=== PATIENT | male | born 1965 | race Caucasian/White ===

== ENCOUNTER 2023-09-27 09:00 | Outpatient (CLI) | payer BC, SELFPAY | END 2023-09-27 09:01 | disposition home or self-care (01) | PROVIDERS: PCP Physician Assistant Medical; Visit Provider Family Medicine | DX: Z00.00 Encounter for general adult medical examination without abnormal findings (principal); N28.9 Disorder of kidney and ureter, unspecified; F41.1 Generalized anxiety disorder; Z12.5 Encounter for screening for malignant neoplasm of prostate; Z13.6 Encounter for screening for cardiovascular disorders; Z11.59 Encounter for screening for other viral diseases | CPT/HCPCS: 80053; 80061; 80175; 84153; 86803 ==

== ENCOUNTER 2023-11-19 10:15 | Outpatient (RCR) | payer BC, SELFPAY | END 2024-03-18 23:59 | disposition home or self-care (01) | PROVIDERS: PCP Physician Assistant Medical; Visit Provider Family Medicine | DX: S76.311A Strain of muscle, fascia and tendon of the posterior muscle group at thigh level, right thigh, initial encounter (principal); M51.36 Other intervertebral disc degeneration, lumbar region; M17.11 Unilateral primary osteoarthritis, right knee; R26.9 Unspecified abnormalities of gait and mobility; R26.81 Unsteadiness on feet; R29.898 Other symptoms and signs involving the musculoskeletal system; Z51.89 Encounter for other specified aftercare | CPT/HCPCS: 97110; 97162 ==

== ENCOUNTER 2024-08-31 10:29 | Outpatient (CLI) | payer BC, SELFPAY | END 2024-08-31 10:30 | disposition home or self-care (01) | LOC: NFLDREF 09-02 12:33 | PROVIDERS: PCP Physician Assistant Medical; Referring Provider Physician Assistant Medical; Visit Provider Family Medicine | DX: R73.03 Prediabetes; Z13.220 Encounter for screening for lipoid disorders; Z12.5 Encounter for screening for malignant neoplasm of prostate; Z13.29 Encounter for screening for other suspected endocrine disorder | CPT/HCPCS: 80048; 80061; 84443; G0103 ==

== ENCOUNTER 2024-11-16 16:16 | Emergency (ER) | payer BC, SELFPAY ==
[2024-11-16 16:21] VITALS: BP 130/88; PULSE 88; RESP 18; TEMP 36.2; O2SAT 97; BMI 27.2
--- NOTE | 2024-11-16 16:59 | ED.GENADULT ---
HPI - General Adult General Date Seen: 11/16/24 Chief complaint: Unspecified Complaint, Adult Stated complaint: Xanax reaction:shortness of breath, blurred vision Time Seen by Provider: 11/16/24 16:47 History of Present Illness HPI narrative: 59 yo M history of anxiety, difficulty sleeping, depression, osteoarthritis, lumbar degenerative disc disease, ADD, presenting to the ER, presenting to the ER today with concern for blurry vision, lightheaded, tightness in his chest. He reports that he has a history of anxiety and depression and is on scheduled meds for this and also has a p.r.n. prescription for Xanax. He took a Xanax about an hour prior to presentation. He has a long history of depression and anxiety. He has also been sober from alcohol for 12 and half years. He has been on depression meds for some years, at least 8 years since his divorce. sertraline. He is also on long-term lamotrigine to help manage his anxiety. He also has been on anxiety meds. In the past he was on propranolol for anxiety but noted to much side effects especially drowsiness and dizziness from propranolol. So about 5 weeks or so ago, his new primary care provider, Dr. Montes through the [facility] stop his propranolol and switch x2 Xanax instead. He has taken Xanax twice before today. Today is been a bad day. he was feeling very anxious today. He took his an axis afternoon after that started to feel worse. He felt tightness in his chest. He felt dizzy. He felt lightheaded. He had blurry vision. He felt unsteady on his feet. He is concerned that he may be on the wrong medicine for his anxiety. He is also worried about the addictive potential for Xanax. He is also worried that there could be something else besides anxiety going on making his chest Feel tight. He has no other episodes of chest pain or shortness of breath lately. No recent travel. No leg swelling. No fever. No cough. No alcohol in over 12 years. No other drugs. Related Data Previous Rx's ?Medication ?Instructions ?Recorded lamotrigine 200 mg tablet 400 mg (2 x 200 mg) PO QDAY #180 08/31/24 tabs sertraline 100 mg tablet 200 mg (2 x 100 mg) PO QDAY #180 08/31/24 tabs trazodone 50 mg tablet 50 mg PO QPM #90 tabs 08/31/24 alprazolam 0.25 mg tablet (Xanax) 0.25 mg PO BID PRN anxiety #30 tabs 09/28/24 atomoxetine 60 mg capsule 60 mg PO QAM #30 caps 09/28/24 (Strattera) hydroxyzine HCl 25 mg tablet 25 mg PO TID PRN #14 tabs 11/16/24 Allergies Allergy/AdvReac Type Severity Reaction Status Date / Time No Known Allergies Allergy Verified 11/16/24 16:26 [facility] Medical History (Updated 11/16/24 @ 19:41 by Justin Chatman MD) ADD (attention deficit disorder) ?F98.8 - Other specified behavioral and emotional disorders with onset usually occurring in childhood and adolescence (ICD-10) Prediabetes ?R73.03 - Prediabetes (ICD-10) Numerous moles ?D22.9 - Melanocytic nevi, unspecified (ICD-10) Opioid withdrawal ?F11.93 - Opioid use, unspecified with withdrawal (ICD-10) High risk medication use ?Z79.899 - Other detention (current) drug therapy (ICD-10) Well adult health check ?Z00.00 - Encounter for general adult medical examination without abnormal findings (ICD-10) Flank pain ?R10.9 - Unspecified abdominal pain (ICD-10) Closed head injury ?S09.90XA - Unspecified injury of head, initial encounter (ICD-10) Back problem ?M53.9 - Dorsopathy, unspecified (ICD-10) Arthritis ?M19.90 - Unspecified osteoarthritis, unspecified site (ICD-10) Encounter for pre-operative examination ?Z01.818 - Encounter for other preprocedural examination (ICD-10) Surgical History (Updated 08/22/23 @ 07:39 by Apoorva Roman) Fracture of tibia ?S82.209A - Unspecified fracture of shaft of unspecified tibia, initial encounter for closed fracture (ICD-10) S/P arthroscopic partial medial meniscectomy (01/31/22) ?Z98.890 - Other specified postprocedural states (ICD-10) Family History (Updated 08/21/23 @ 13:58 by Latricia Tipton [facility] Mother Vascular disease Father Vascular disease Family/Other Depression Anxiety Social History (Updated 06/27/22 @ 15:40 by Mitch Kaur) Narrative: Non-smoker Smoking Status: Never smoker Exam Narrative: Exam Narrative: Constitutional: Appears well-developed and well-nourished. Alert. Conversant. Non toxic. HENT: Head: Atraumatic. Nose: Nose normal. Mouth/Throat: Oral mucosa is clear and moist. no trismus. Pharynx normal. Tonsils symmetric. No tonsillar enlargement, erythema, or exudate. Eyes: Conjunctivae normal. EOM normal. Pupils equal, round, and reactive to light. No scleral icterus. Neck: Normal range of motion. Neck supple. No tracheal deviation present. No JVD Cardiovascular: Normal rate, regular rhythm. No gallop. No friction rub. No murmur heard. Symmetric radial artery pulses Pulmonary/Chest: Effort normal. No stridor. No respiratory distress. No wheezes. No rales. No rhonchi . No tenderness. Abdominal: Soft. Bowel sounds normal. No distension. No mass. No tenderness. No rebound. No guarding. Musculoskeletal: RUE: Normal range of motion. No tenderness. No deformity LUE: Normal range of motion. No tenderness. No deformity RLE: Normal range of motion. No edema. No tenderness. No deformity LLE: Normal range of motion. No edema. No tenderness. No deformity Neurological: Alert and oriented to person, place, and time. Normal strength. CN II-VII intact. No sensory deficit. GCS eye subscore is 4. GCS verbal subscore is 5. GCS motor subscore is 6. Normal coordination Skin: Skin is warm and dry. No rash noted. No pallor. Normal capillary refill. Psychiatric: polite. Anxious. Jumping rapidly from topic to topic but is easily redirectable. Ultimately able to get a fairly detailed story about his meds and symptoms from him. He endorses lot of anxiety in general, recent stressors lately. He is also anxious about his new anxiety medicines. See HPI. Const: Vital Signs, click to edit/add: Vital Signs - 24 hr 11/16/24 16:21 11/16/24 17:50 11/16/24 18:42 Temperature 97.2 F L Pulse Rate [Right Pulse Oximeter] 88 71 Respiratory Rate 18 18 Respiratory Rate [ Upper Chest] 18 Blood Pressure [Le ft Upper Arm] 130/88 136/81 Pulse Oximetry 97 97 Oxygen Delivery Me thod Room Air Room Air Course Vital Signs Vital signs: Initial Vital Signs Temperature 97.2 F L 11/16/24 16:21 Temperature Source Temporal Artery Scan 11/16/24 16:21 Pulse Rate 88 11/16/24 16:21 Pulse Rhythm Regular 11/16/24 16:21 Respiratory Rate 18 11/16/24 16:21 Blood Pressure 130/88 11/16/24 16:21 Blood Pressure Mean 102 11/16/24 16:21 Blood Pressure Position Sitting 11/16/24 16:21 Pulse Oximetry 97 11/16/24 16:21 Oxygen Delivery Method Room Air 11/16/24 16:21 Vital Signs Temperature 97.2 F L 11/16/24 16:21 Pulse Rate 88 11/16/24 16:21 Respiratory Rate 18 11/16/24 16:21 Blood Pressure 130/88 11/16/24 16:21 Pulse Oximetry 97 11/16/24 16:21 Oxygen Delivery Method Room Air 11/16/24 16:21 Temperature 97.2 F L 11/16/24 16:21 Pulse Rate 71 11/16/24 18:42 Respiratory Rate 18 11/16/24 18:42 Blood Pressure 136/81 11/16/24 18:42 Pulse Oximetry 97 11/16/24 18:42 Oxygen Delivery Method Room Air 11/16/24 18:42 Medications Administered Medications: Discontinued Medications Generic Name Dose Route Start Last Admin Trade Name Memoq PRN Reason Stop Dose Admin Aspirin 162 mg 11/16/24 17:29 11/16/24 17:42 Aspirin 81 Mg Tab.Chew PO 11/16/24 17:30 162 mg ONCE ONE Administration Hydroxyzine Pamoate 25 mg 11/16/24 17:30 11/16/24 17:42 Hydroxyzine Pamoate 25 Mg Capsule PO 11/16/24 17:31 25 mg ONCE ONE Administration Medical Decision Making [facility] Narrative Medical decision making narrative: This patient presents to the ER today for evaluation of Anxiety and feeling poorly all day long because of anxiety,. He took a Xanax this evening to help treat his anxiety but after that started to feel worse, dizziness, unsteadiness, bilateral blurry vision, and subsequently developed mild chest tightness. In terms of his chest symptoms,. Differential was broad. No evidence of palpitations, syncope or other cardiac dysrhythmia. based on workup here in the ER so far. We considered possible ACS, however workup with EKG and troponin is negative. HEART score is 3. Given time since onset of symptoms, I do not think the patient needs to be admitted for further sets of enzymes. EKG shows no evidence for pericarditis. Clinical presentation not suggestive of myocarditis. Chest x-ray shows no evidence for pneumonia, pneumothorax, pulmonary edema, pleural effusion, rib fracture, cardiomegaly. Mediastinum is normal on the x-ray. The patient has no ripping or tearing pain through to the back and has symmetric pulses on exam, no other acute neuro findings so I doubt aortic dissection. Risk of radiation and contrast exposure would outweigh the benefit of CT angiogram. We considered PE for this patient. He is overall very low risk. At this point the risk of radiation and contrast exposure from CT PA would outweigh the benefit. No wheezing or bronchospasm to suggest COPD/asthma. No signs of chest wall cellulitis, shingles, injury. There is a strong component of anxiety underlying his symptoms and I suspect based on his workup so far that is normal that anxiety was driving his chest tightness. He was treated with hydroxyzine here in the ER and is now feeling somewhat better. Much less anxious. Chest tightness is resolved. He does note that he has had increasing anxiety lately. His primary care provider started him on Xanax a few weeks ago and he has been very nervous about that. He has a history of alcohol addiction ( And also had been given prescriptions for opiate pain killers several years ago after orthopedic injury and started developed symptoms of tolerance and withdrawal ) and does not want to create a new addiction to benzos. his anxiety actually got worse this evening after taking Xanax and I suspect that may have been what drove his chest tightness. Anxiety was treated with hydroxyzine here. At this point he is calm, conversant, lucid, cooperative. He is not posing a risk to himself or others. Does not require inpatient hospitalization. In discussion with the patient and his family, we decided to have him stop the Xanax, at least temporarily. Will start him on hydroxyzine that he can use on a p.r.n. basis instead. He will continue on his other anxiety meds for now. He would like to get back cut with a psychiatrist for med management. In the past he had had psychiatry managing his meds and felt more confident at that time. After His psychiatrist retired, there was such a long wait to get into a new psychiatrist, he never made the appointment. I will set him up with a referral to than what is, psychiatric nurse practitioner. this appointment is scheduled in 3 days on 11/19 at 10:00 a.m. in the morning. With reasonable clinical confidence, I think the patient is safe for outpatient follow up. Discussed return precautions. Questions answered. Patient voices comfort with the plan. Lab Data Labs: Lab Results 11/16/24 Range/Units 17:39 WBC 8.19 (4.50-11.00) K/uL RBC 5.57 (4.30-5.90) m/uL Hgb 16.4 (13.5-17.5) gm/dL Hct 49.1 (37.0-53.0) % MCV 88 (80-100) fL MCH 29 (26-34) pg MCHC 33 (32-36) gm/dL RDW Coeff of Raphael 12.4 (11.5-15.5) % Plt Count 213 (140-440) K/uL Neut % (Auto) 85.7 H (42.0-72.0) % Lymph % (Auto) 4.8 L (20-44) % [place] % (Auto) 7.0 (0.0-11.0) % Eos % (Auto) 2.3 (0.0-7.0) % Baso % (Auto) 0.1 (0.0-3.0) % Neut # (Auto) 7.00 (1.7-7.0) K/uL Lymph # (Auto) 0.40 L (0.90-2.90) K/uL [place] # (Auto) 0.60 (0.00-0.90) K/UL Eos # (Auto) 0.19 (0.00-0.50) K/uL Baso # (Auto) 0.01 (0.00-0.30) K/uL Abs Immat Gran (auto) 0.01 (0.00-0.30) K/uL Imm/Tot Granulo (auto) 0.1 % Sodium 141 (135-149) mmol/L Potassium 4.0 (3.6-5.1) mmol/L Chloride 103 (96-114) mmol/L Carbon Dioxide 30 (20-32) mmol/L Anion Gap 8 (7-15) mEq/L BUN 19 (7-30) mg/dL Creatinine 1.0 (0.5-1.5) mg/dL Estimated Creat Clear 84.71 Estimated GFR 87 ml/min Glucose 104 (60-115) mg/dL Calcium 9.6 (8.4-10.6) mg/dL POC Troponin I 0.00 L (0.01-0.04) ng/ml ECG Data Attestation: I personally reviewed and interpreted this ECG as follows: Interpretation: Normal sinus rhythm Rate: He for [place]: 176 QRS axis: left axis deviation. Left anterior fascicular block ST segment/T wave: no ST segment elevation or depression. QTc: 441 Discharge Plan Discharge Clinical Impression: Anxiety, Chest pain Patient Disposition: Home, Self-Care Condition: Stable Instructions: Chest Pain (ED), Panic Disorder (ED) Additional Instructions: as we discussed, please come back to the ER right away if you have more episodes of chest pain or chest tightness, episodes of dizziness or trouble breathing, or any concerns. To help manage her anxiety, continue on your regular medications (sertraline, lamotrigine). Stop taking Xanax. I will give you a prescription for hydroxyzine that he can use only if needed for the next couple of days. You have an appointment to see a psychiatric nurse practitioner, Guy Blandon, on 11/19/2024 at 10:00 a.m . Please refer to the attached sheet for details and location of that appointment please follow-up with your regular doctor in the [facility] within 1-2 weeks. Remember, come back to the ER any time if you are having more problems or any concerning symptoms. Prescriptions: New hydroxyzine HCl 25 mg tablet 25 mg PO TID PRNQty: 14 0RF No Action sertraline 100 mg tablet 200 mg PO QDAY Qty: 180 3RF trazodone 50 mg tablet 50 mg PO QPM Qty: 90 3RF lamotrigine 200 mg tablet 400 mg PO QDAY Qty: 180 3RF atomoxetine [Strattera] 60 mg capsule 60 mg PO QAM Qty: 30 1RF alprazolam [Xanax] 0.25 mg tablet 0.25 mg PO BID PRN (Reason: anxiety) Qty: 30 1RF Follow Up/Referrals: Piedad Mason PA-C [Physician Social Sciences Instructor] - Stand Alone Forms: [employer] Info Instructions
[2024-11-16] MEDS: hydrOXYzine pamoate 25 MG CAPSULE PO (17:42)
[2024-11-16] MEDS: ASPIRIN 81 MG TAB.CHEW 162 MG PO (17:42)
[2024-11-16 17:48] LABS: Basophils Absolute Auto 0.01 K/uL (0.00-0.30); Basophils Percent Auto 0.1 % (0.0-3.0); Eosinophils Absolute Auto 0.19 K/uL (0.00-0.50); Eosinophils Percent Auto 2.3 % (0.0-7.0); Hematocrit 49.1 % (37.0-53.0); Hemoglobin* 16.4 gm/dL (13.5-17.5); Immature Granulocytes Abs Auto 0.01 K/uL (0.00-0.30); Immature Granulocytes Pct Auto 0.1 %; Lymphocytes Percent Auto 4.8 % (20-44); Mean Corpuscular HGB Conc 33 gm/dL (32-36); Mean Corpuscular Hemoglobin 29 pg (26-34); Mean Corpuscular Volume 88 fL (80-100); Neutrophils Percent Auto 85.7 % (42.0-72.0); Platelet Count* 213 K/uL (140-440); RDW Coefficient of Variation % 12.4 % (11.5-15.5); Red Blood Count 5.57 m/uL (4.30-5.90); White Blood Count* 8.19 K/uL (4.50-11.00)
[2024-11-16 17:50] VITALS: RESP 18
[2024-11-16 18:12] LABS: Slide Review Reflex No
[2024-11-16 18:23] LABS: Chloride* 103 mmol/L (96-114); Sodium* 141 mmol/L (135-149)
[2024-11-16 18:26] LABS: Anion Gap 8 mEq/L (7-15); Blood Urea Nitrogen* 19 mg/dL (7-30); Carbon Dioxide* 30 mmol/L (20-32); Est. Creatinine Clearance* 84.71; Estimated Glomerular Filt Rate 87 ml/min
[2024-11-16 18:27] LABS: Calcium* 9.6 mg/dL (8.4-10.6); Glucose* 104 mg/dL (60-115)
[2024-11-16 18:42] VITALS: BP 136/81; PULSE 71; RESP 18; O2SAT 97
== END 2024-11-16 19:51 | disposition home or self-care (01) ==
PROVIDERS: Emergency Provider Emergency Medicine; PCP Family Medicine
DX: F41.9 Anxiety disorder, unspecified (principal); R07.9 Chest pain, unspecified
CPT/HCPCS: 36415; 80048; 84484; 85025; 93005; 99283; 99284; A9270

== ENCOUNTER 2024-12-01 16:54 | Inpatient (IN) | payer BC, SELFPAY ==
--- OUTSIDE RECORDS SUMMARY | 2024-12-01 16:56 | XMS_ITS | Clinical Summary ---
Author Organization [facility] Address [place], [place] [address] Care Team Providers Care Dog Pound Attendant Name Role Phone Pcp, No Primary Care Provider Unavailabl e Allergies No known active allergies Medications sertraline (ZOLOFT) 100 mg tabletIndicatio ns:Adjustment disorder with mixed anxiety and depressed mood Take 1.5 tablets by mouth once daily. 135 tablet 3 06/17/2018 Active lamoTRIgine (LAMICTAL) 100 mg tabletIndicatio ns:Generalized anxiety disorder Take 1 tablet by mouth once daily. 30 tablet 2 06/17/2018 Active hydrOXYzine HCl (ATARAX) 25 mg tabletIndicatio ns:Generalized anxiety disorder Take 1 tablet by mouth every 6 hours if needed for Anxiety. 60 tablet 06/17/2018 Active traZODone (DESYREL) 50 mg tabletIndicatio ns:Psychophysio logic insomnia TAKE 1 TO 2 TABLETS BY MOUTH AT BEDTIME 60 tablet 12/14/2019 Active Active Problems Problem Noted Date Diagnosed Date Routine adult health maintenance 10/03/2015 Overview (10/03/2015): Colonoscopy 10/2015 normal repeat in 10 years Sleep concern 07/18/2015 Other and unspecified alcohol dependence, in rem ission 10/03/2012 Adjustment disorder with mixed anxiety and depre ssed mood 07/02/2007 Immunizations Name Administration Dates Next Due Influenza Virus, Unspecified 10/12/2010, 12/16/2008,09/01/2007,10/25/2006, 10/09/2005,11/27/2004 Influenza, IIV3 (Age >=3 years) 11/13/2014 Influenza, IIV4 (Age 6-35 Mos) 09/29/2013 Td (Age >=7 Years) 05/29/2004 Tdap 07/18/2015,06/16/2012 Social History Tobacco Use Types Packs/Day Years Used Date Smoking Tobacco: Never Smokeless Tobacco: Never Tobacco Cessation:Counseling Given: Yes Alcohol Use Standard Drinks/Week Comments No 0 (1 standard drink = 0.6 oz pure alcohol) In recovery quit 5 yrs ago 07/2015 PHQ-2 Answer Date Recorded PHQ-2 Score 0 01/31/2019 Sex and Gender Information Value Date Recorded Sex Assigned at Not on file Legal Sex Male 5:27 AM A [employer] Gender Identity Not on file Sexual Orientation Not on file Obstetrics History Last Filed Vital Signs Vital Sign Reading Time Taken Comments Blood Pressure 105/66 06/17/2018 10:36 AM CDT Pulse 64 06/17/2018 10:36 AM CDT Temperature 35.8 C (96.5 F) 06/17/2018 10:36 AM CDT Respiratory Rate - - Oxygen Saturation 98% 06/17/2018 10:36 AM CDT Inhaled Oxygen Concentration - - Weight 97.1 kg (214 lb) 06/17/2018 10:36 AM CDT Height 180.3 cm (5' 11) 06/17/2018 10:36 AM CDT Body Mass Index 29.85 06/17/2018 10:36 AM CDT Plan of Treatment Health Maintenance Due Date Last Done Comments HIV for age 15-65 02/04/1980 Hepatitis C screening for age 18-79 1983 Zoster (shingles) series for age 50+ (1 of 2) 2015 BMI (ht and wt on same day) for age 18+ 06/17/2019 06/17/2018, 08/14/2017, 05/27/2017, Additional history exists Depression screening for age 12+ 06/17/2019 06/17/2018, 05/27/2017, 11/20/2016, Additional history exists Lipids for age 45-75 07/19/2020 07/19/2015 COVID-19 vaccine series (2023- season) 2024 Influenza for age 50-64 08/02/2024 11/13/20 14, 10/12/2010, 12/16/2008, Additional history exists Tetanus booster 07/18/2025 07/18/2015, 06/01, 05/29/2004 Colonoscopy through age 75 10/03/2025 10/03/2015, Tdap Completed 07/18/2015, 06/16/2012 Pneumococcal series for age 6-49 Aged Out No longer eligible based on patient's age to complete this topic Procedures Procedure Name Priority Date/Time Associated Diagnosis Comments LIPID PANEL W REFLEX MEASURED LDL Routine 07/19/2015 9:09 AM CDT Screening for lipid disorders from Last 3 Months or Most Recently Relevant to Health Maintenance Results * (ABNORMAL) LIPID PANEL W REFLEX MEASURED LDL (07/19/2015 9:09 AM CDT) CHOLESTEROL,TOTAL 198 100 - 199 mg/dL 07/19/2015 9:34 AM CDT [facility] TRIGLYCERIDES 124 <150 mg/dL 07/19/2015 9:34 AM CDT [facility] HDL CHOLESTEROL 45 >40 mg/dL 07/19/2015 9:34 AM CDT [facility] NON-HDL CHOLESTEROL 153(H) <145 mg/dl 07/19/2015 9:34 AM CDT [facility] CHOL/HDL RATIO 4.40 <4.50 07/19/2015 9:34 AM CDT [facility] LDL CHOLESTEROL 128 <=130 mg/dL 07/19/2015 9:34 AM CDT [facility] PATIENT STATUS FASTING 07/19/2015 9:34 AM CDT [facility] Blood specimen (specimen) BLOOD SPECIMEN / Unknown Venipuncture / Unknown 07/19/2015 9:09 AM CDT 07/19/2015 9:09 AM CDT us Indu Mondragon MD CHEMISTRY Fabi rayo Result [facility] [address] [place] [address], from Last 3 Months or Most Recently Relevant to Health Maintenance Insurance [id number] Care Teams Dog Pound Attendant Relationship Specialty Start Date End Date Pcp, No . PCP - General 01/23/23
[2024-12-01 17:37] VITALS: BP 143/70; PULSE 73; RESP 18; TEMP 37.4; O2SAT 96; BMI 27.2
--- NOTE | 2024-12-01 18:26 | ED_ITS ---
HPI - Abdominal Pain General Time Seen by Provider: 18:26 Date Seen: 12/01/24 Chief Complaint: Abdominal Pain Stated Complaint: abdominal pain (R) Time Seen by Provider: 12/01/24 18:25 Source: patient Mode of arrival: ambulatory Limitations: no limitations History of Present Illness HPI narrative: 59-year-old male with history of anxiety who presents today with abdominal pain. Patient reports 4-5 days of right lower quadrant abdominal pain. Decreased stool output. No urinary symptoms. Nausea and did have some vomiting. Pain is worse with movement, worse with eating. No prior abdominal surgeries. Has taken ibuprofen for this. Related Data Previous Rx's ?Medication ?Instructions ?Recorded lamotrigine 200 mg tablet 400 mg (2 x 200 mg) PO QDAY #180 08/31/24 tabs sertraline 100 mg tablet 200 mg (2 x 100 mg) PO QDAY #180 08/31/24 tabs trazodone 50 mg tablet 50 mg PO QPM #90 tabs 08/31/24 alprazolam 0.25 mg tablet (Xanax) 0.25 mg PO BID PRN anxiety #30 tabs 09/28/24 hydroxyzine HCl 25 mg tablet 25 mg PO TID PRN #14 tabs 11/16/24 Allergies Allergy/AdvReac Type Severity Reaction Status Date / Time No Known Allergies Allergy Verified 12/01/24 19:20 [facility] Medical History (Updated 12/01/24 @ 20:49 by Linden Haas MD) ADD (attention deficit disorder) ?F98.8 - Other specified behavioral and emotional disorders with onset usually occurring in childhood and adolescence (ICD-10) Prediabetes ?R73.03 - Prediabetes (ICD-10) Numerous moles ?D22.9 - Melanocytic nevi, unspecified (ICD-10) Opioid withdrawal ?F11.93 - Opioid use, unspecified with withdrawal (ICD-10) High risk medication use ?Z79.899 - Other long-term (current) drug therapy (ICD-10) Well adult health check ?Z00.00 - Encounter for general adult medical examination without abnormal findings (ICD-10) Flank pain ?R10.9 - Unspecified abdominal pain (ICD-10) Closed head injury ?S09.90XA - Unspecified injury of head, initial encounter (ICD-10) Back problem ?M53.9 - Dorsopathy, unspecified (ICD-10) Arthritis ?M19.90 - Unspecified osteoarthritis, unspecified site (ICD-10) Encounter for pre-operative examination ?Z01.818 - Encounter for other preprocedural examination (ICD-10) Surgical History (Updated 08/22/23 @ 07:39 by Apoorva Roman) Fracture of tibia ?S82.209A - Unspecified fracture of shaft of unspecified tibia, initial encounter for closed fracture (ICD-10) S/P arthroscopic partial medial meniscectomy (01/31/22) ?Z98.890 - Other specified postprocedural states (ICD-10) Family History (Updated 08/21/23 @ 13:58 by Latricia Valdez ~ [facility]) Mother Vascular disease Father Vascular disease Family/Other Depression Anxiety Social History (Updated 06/27/22 @ 15:40 by Mitch Kaur) Narrative: Non-smoker Smoking Status: Never smoker Exam Narrative: Exam Narrative: General: Well-developed and well-nourished, no acute distress Head: Atraumatic and normocephalic Eyes: Pupils are equal reactive, extraocular motions intact, conjunctiva clear ENT: External nose and ears are normal, posterior pharynx without erythema or exudate Neck: No midline cervical tenderness, full spontaneous range of motion the neck, trachea midline, no adenopathy Heart: Regular rate and rhythm no murmurs or thrills Lungs: Clear to auscultation bilaterally without wheezes or crackles Abdomen: Soft, marked right lower quadrant tenderness, nondistended with active bowel sounds Musculoskeletal: No tenderness, deformity, or edema Neurologic: Awake, alert, and oriented x3, no gross focal neurologic deficits, cranial nerves intact as tested Psych: Mood and affect are appropriate Skin: No rashes Const: Vital Signs, click to edit/add: Vital Signs - 24 hr 12/01/24 17:37 Temperature 99.3 F Pulse Rate [Right Pulse Oximeter] 73 Respiratory Rate 18 Blood Pressure [Ri ght Upper Arm] 143/70 H Pulse Oximetry 96 Course Course ED Course: Reviewed most recent emergency department visit from November 16 which was for anxiety, also is complaining about some chest pain, negative troponin, negative EKG. Patient presents today with right lower quadrant abdominal pain for the last several days. On exam here, vital a stable with right lower quadrant tenderness. Concern for acute appendicitis, colitis or mesenteric adenitis also possible. Consider ureteral stone although clinically this is little less likely. Labs and CT scan are ordered. Reevaluation(s) Time of Reevaluation #1: 19:27 Reevaluation #1: CT scan of the abdomen and pelvis independently interpreted by me with large left renal cyst, right lower quadrant standing with evidence of acute appendicitis, no free air noted but concern for perforation. Zosyn ordered, radiology interpretation pending and will discuss with general surgery. Time of Reevaluation #2: 20:39 Reevaluation #2: Labs independently interpreted by me with normal basic panel, urinalysis with 3+ blood. Waiting for radiology interpretation CT scan, I did call [facility] regarding delay. Time of Reevaluation #3: 20:46 Reevaluation #3: Reviewed radiology interpretation of CT scan which agrees with my initial interpretation of acute appendicitis with phlegmon versus early abscess, suspect necrotic or ruptured appendix. Care discussed with Dr. Dalton, general surgery who will review images and callback. Additional Reevaluation(s): 21:[address] Dalton, general surgery, who recommends antibiotic management initially, will see the patient in the department. Discussed admission with Dr. eYh Vital Signs Vital signs: Initial Vital Signs Temperature 99.3 F 12/01/24 17:37 Temperature Source Temporal Artery Scan 12/01/24 17:37 Pulse Rate 73 12/01/24 17:37 Pulse Rhythm Regular 12/01/24 17:37 Pulse Strength 3+ Normal 12/01/24 17:37 Respiratory Rate 18 12/01/24 17:37 Blood Pressure 143/70 H 12/01/24 17:37 Blood Pressure Mean 94 12/01/24 17:37 Blood Pressure Position Sitting 12/01/24 17:37 Pulse Oximetry 96 12/01/24 17:37 Vital Signs Temperature 99.3 F 12/01/24 17:37 Pulse Rate 73 12/01/24 17:37 Respiratory Rate 18 12/01/24 17:37 Blood Pressure 143/70 H 12/01/24 17:37 Pulse Oximetry 96 12/01/24 17:37 Temperature 99.3 F 12/01/24 17:37 Pulse Rate 73 12/01/24 17:37 Respiratory Rate 18 12/01/24 17:37 Blood Pressure 143/70 H 12/01/24 17:37 Pulse Oximetry 96 12/01/24 17:37 Medications Administered Medications: Discontinued Medications Generic Name Dose Route Start Last Admin Trade Name Memoq PRN Reason Stop Dose Admin Piperacillin Sod/Tazobactam 100 mls @ 100 mls/hr 12/01/24 19:29 12/01/24 19:37 Sod 3.375 gm/ Sodium Chloride IVPB 12/01/24 19:30 100 mls/hr ONCE ONE Administration Ketorolac Tromethamine 15 mg 12/01/24 19:32 12/01/24 19:36 Ketorolac 15 Mg/Ml Inj IVP 12/01/24 19:33 15 mg ONCE ONE Administration Ondansetron HCl 4 mg 12/01/24 19:26 12/01/24 19:37 Ondansetron 2 Mg/Ml Inj IVP 12/01/24 19:27 4 mg ONCE ONE Administration MDM - Abdominal Pain Lab Data Labs: Lab Results 12/01/24 Range/Units 19:10 WBC 13.18 H (4.50-11.00) K/uL RBC 4.65 (4.30-5.90) m/uL Hgb 13.6 (13.5-17.5) gm/dL Hct 41.5 (37.0-53.0) % MCV 89 (80-100) fL MCH 29 (26-34) pg MCHC 33 (32-36) gm/dL RDW Coeff of Raphael 12.7 (11.5-15.5) % Plt Count 188 (140-440) K/uL Neut % (Auto) 80.4 H (42.0-72.0) % Lymph % (Auto) 9.3 L (20-44) % [place] % (Auto) 9.0 (0.0-11.0) % Eos % (Auto) 0.9 (0.0-7.0) % Baso % (Auto) 0.2 (0.0-3.0) % Neut # (Auto) 10.60 H (1.7-7.0) K/uL Lymph # (Auto) 1.20 (0.90-2.90) K/uL [place] # (Auto) 1.20 H (0.00-0.90) K/UL Eos # (Auto) 0.10 (0.00-0.50) K/uL Baso # (Auto) 0.00 (0.00-0.30) K/uL Abs Immat Gran (auto) 0.00 (0.00-0.30) K/uL Imm/Tot Granulo (auto) 0.2 % Sodium 137 (135-149) mmol/L Potassium 4.3 (3.6-5.1) mmol/L Chloride 102 (96-114) mmol/L Carbon Dioxide 29 (20-32) mmol/L Anion Gap 6 L (7-15) mEq/L BUN 16 (7-30) mg/dL Creatinine 0.9 (0.5-1.5) mg/dL Estimated Creat Clear 94.13 Estimated GFR 98 ml/min Glucose 102 (60-115) mg/dL Calcium 9.1 (8.4-10.6) mg/dL Urine Color Yellow (Yellow) Urine Appearance Clear (Clear) Urine pH 6.0 (5.0-8.5) Ur Specific [place] >= 1.030 (1.000-1.030) Urine Protein 2+ A (Negative) Urine Glucose (UA) Negative (Negative) Urine Ketones Trace A (Negative) Urine Blood 3+ A (Negative) Urine Nitrite Negative (Negative) Urine Bilirubin 1+ A (Negative) Urine Urobilinogen 0.2 (0.2-1.0) Ur Leukocyte Esterase Negative (Negative) Urine RBC 5-10 A (0-2) Urine WBC 2-5 (0-5) Ur Squamous Epith Cells None (None-Few) Urine Bacteria Few A (None) Fine Granular Casts Moderate A (None) Discharge Plan Discharge Clinical Impression: Complex appendicitis Prescriptions: No Action sertraline 100 mg tablet 200 mg PO QDAY Qty: 180 3RF trazodone 50 mg tablet 50 mg PO QPM Qty: 90 3RF lamotrigine 200 mg tablet 400 mg PO QDAY Qty: 180 3RF alprazolam [Xanax] 0.25 mg tablet 0.25 mg PO BID PRN (Reason: anxiety) Qty: 30 1RF hydroxyzine HCl 25 mg tablet 25 mg PO TID PRNQty: 14 0RF Follow Up/Referrals: Christiano Montes MD [Primary Care Provider] -
--- NOTE | 2024-12-01 18:49 | CRLHL7_ITS ---
For Patients: As a result of the Century Cures Act, medical imaging exams and procedure reports are released immediately into your electronic medical record. You may view this report before your referring provider. If you have questions, please contact your health care provider. Indication: Right lower quadrant pain Technique: CT through the abdomen and pelvis following 95 mL Isovue 370 IV contrast Comparison: CT abdomen and pelvis performed 01/22/2016 Findings: Motion degraded examination. Lower chest: No acute abnormality appreciated. Hepatobiliary: No significant parenchymal abnormality is appreciated. Spleen: Unremarkable. Pancreas: No acute abnormality appreciated. Adrenal glands: No acute abnormality appreciated. Kidneys: No significant parenchymal abnormality appreciated. No visualized calculi. No hydronephrosis. Bowel: No obstruction. Severe stranding in the right lower quadrant. The appendix is not distinctly visualized and is largely irregular and indistinct in the right lower quadrant. Presumed appendicolith noted. Vascular: No acute abnormality appreciated. Lymph nodes: No gross lymphadenopathy. Peritoneum: Phlegmon in the right lower quadrant with no organized abscess. : No acute abnormality appreciated. Soft tissues: No acute abnormality appreciated. Bones: No acute fracture. No lytic or blastic lesion. Mild degenerative changes. Impression: Acute appendicitis, favor complicated. Evaluation is degraded due to motion degradation, but there appears to be extensive phlegmon and suspected early abscess with no discrete drainable fluid collection at this time. The appendix itself is poorly delineated and likely necrotic or ruptured. No free air. Please note that all CT scans at this facility use dose modulation, iterative reconstruction, and/or weight-based dosing when appropriate to reduce radiation dose to as low as reasonably achievable. Dictated by Gaurang Escobar MD @ 12/01/2024 8:41:03 PM (Electronically Signed)
[2024-12-01 19:13] LABS: Basophils Percent Auto 0.2 % (0.0-3.0); Eosinophils Percent Auto 0.9 % (0.0-7.0); Hematocrit 41.5 % (37.0-53.0); Hemoglobin* 13.6 gm/dL (13.5-17.5); Immature Granulocytes Pct Auto 0.2 %; Lymphocytes Percent Auto 9.3 % (20-44); Mean Corpuscular HGB Conc 33 gm/dL (32-36); Mean Corpuscular Hemoglobin 29 pg (26-34); Mean Corpuscular Volume 89 fL (80-100); Neutrophils Percent Auto 80.4 % (42.0-72.0); Platelet Count* 188 K/uL (140-440); RDW Coefficient of Variation % 12.7 % (11.5-15.5); Red Blood Count 4.65 m/uL (4.30-5.90); White Blood Count* 13.18 K/uL (4.50-11.00)
--- OUTSIDE RECORDS SUMMARY | 2024-12-01 19:18 | XMS_ITS | Clinical Summary ---
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 Gender Identity Not on file Sexual Orientation [...] age 15-65 02/04/1980 Hepatitis C screening for ag e 18-79 1983 Pneumococcal series for age 50+ (1 of 1 - PCV) 2015 Zoster (shingles) series for age 50+ (1 of 2) 2015 BMI (ht and wt on same day) for age 18+ 06/17/2019 06/17/2018, 08/14/2017, 05/27/2017, Additional history exists Depression screening for age 12+ 06/17/2019 06/17/2018, 05/27/2017, 11/20/2016, Additional history exists Lipids for age 45-75 07/19/2020 07/19/2015 COVID-19 vaccine series ( - 2023- season) 2024 Influenza for age 50-64 08/02/2024 11/13/20 14, 10/12/2010, 12/16/2008, Additional history exists Tetanus booster 07/18/2025 07/18/2015, 06/01, 05/29/2004 Colonoscopy through age 75 10/03/2025 10/03/2015, Tdap Completed 07/18/2015, 06/16/2012 Procedures Procedure Name Priority Date/Time Associated Diagnosis Comments LIPID PANEL W REFLEX MEASURED LDL Routine 07/19/2015 9:09 AM CDT Screening for lipid disorders from Last 3 Months or Most Recently Relevant to Health Maintenance Results * (ABNORMAL) LIPID PANEL W REFLEX MEASURED LDL (07/19/2015 9:09 AM CDT) CHOLESTEROL,TOTAL 198 100 - 199 mg/dL 07/19/2015 9:34 AM CDT [facility] TRIGLYCERIDES 124 <150 mg/dL 07/19/2015 9:34 AM CDT [facility] HDL CHOLESTEROL 45 >40 mg/dL 07/19/2015 9:34 AM CDT [facility] NON-HDL CHOLESTEROL 153(H) <145 mg/dl 07/19/2015 9:34 AM CDT [facility] CHOL/HDL RATIO 4.40 <4.50 07/19/2015 9:34 AM CDT [facility] LDL CHOLESTEROL 128 <=130 mg/dL 07/19/2015 9:34 AM CDT [facility] PATIENT STATUS FASTING 07/19/2015 9:34 AM CDT [facility] Blood specimen (specimen) BLOOD SPECIMEN / Unknown Venipuncture / Unknown 07/19/2015 9:09 AM CDT 07/19/2015 9:09 AM CDT us Indu Mondragon MD CHEMISTRY Fabi rayo Result [facility] [address] [place] [address], [place] [phone] from Last 3 Months or Most Recently Relevant to Health Maintenance Insurance [facility] Care Teams Aircraft Accessories Mechanic Relationship Specialty Start Date End Date Pcp, No . PCP - General 01/23/23
[2024-12-01 19:28] LABS: Slide Review Reflex No
[2024-12-01 19:33] LABS: Chloride* 102 mmol/L (96-114); Sodium* 137 mmol/L (135-149)
[2024-12-01 19:34] LABS: Appearance Urine Clear (Clear); Bilirubin Urine 1+ (Negative); Blood Urine 3+ (Negative); Color Urine Yellow (Yellow); Glucose Urine Negative (Negative); Ketones Urine Trace (Negative); Leukocyte Esterase Urine Negative (Negative); Nitrite Urine Negative (Negative); Potassium* 4.3 mmol/L (3.6-5.1); Protein Urine 2+ (Negative); Specific Gravity Urine >= 1.030 (1.000-1.030); Urobilinogen Urine 0.2 (0.2-1.0)
[2024-12-01 19:36] LABS: Anion Gap 6 mEq/L (7-15); Carbon Dioxide* 29 mmol/L (20-32); Creatinine* 0.9 mg/dL (0.5-1.5); Est. Creatinine Clearance* 94.13; Estimated Glomerular Filt Rate 98 ml/min
[2024-12-01] MEDS: KETOROLAC 15 MG/ML inj IVP (19:36)
[2024-12-01 19:37] LABS: Blood Urea Nitrogen* 16 mg/dL (7-30); Calcium* 9.1 mg/dL (8.4-10.6); Glucose* 102 mg/dL (60-115)
[2024-12-01] MEDS: ONDANSETRON 2 MG/ML inj 4 MG IVP ×2 (19:37→23:14)
[2024-12-01] MEDS: PIPERACILLIN/TAZOBACTAM 3.375 GM in 0.9 % SODIUM CHLORIDE Mini-bag 100 ML IVPB (19:37)
[2024-12-01 19:44] LABS: Bacteria Urine Few; Fine Granular Casts Urine Moderate
[2024-12-01 21:52] VITALS: BP 159/82; PULSE 87; RESP 18; TEMP 37.8; O2SAT 97; BMI 27.9
--- NOTE | 2024-12-01 22:02 | P.IMHP_ITS ---
Hospitalist- H&P: HPI History of Present Illness Date Seen: 12/01/24 Chief complaint: abdominal pain (R) Narrative: ADMISSION HISTORY AND PHYSICAL - HOSPITALIST Chief Complaint: Abdominal pain x6 days HPI: 59-year-old male with history of anxiety who presents today with abdominal pain. Patient reports 5-6 days of right lower quadrant abdominal pain. Decreased stool output. No urinary symptoms. Nausea and did have some vomiting. Pain is worse with movement, worse with eating. No prior abdominal surgeries. Has taken ibuprofen for this. ER COURSE: imaging, fluids, pain management, antibiotics CODE STATUS: FULL CODE EMERGENCY CONTACT PLAN: Piedad Ruby Rel To Pat I've updated the PFSH, medications and allergies in the Expanse tabs. INVESTIGATIONS: LABS/MICRO/ECG/IMAGING T-max 100.0? 159/82 Pulse 87 RR 18 Satting 97% on room air 90.8 kilos His labs are fairly unremarkable. He does have a mild leukocytosis of 13.1, 80% neutrophils. Normal hemoglobin and platelet count. Normal electrolytes. Urine shows 3+ blood, 2+ protein, moderate casts CT AP Acute appendicitis, favor complicated. Evaluation is degraded due to motion degradation, but there appears to be extensive phlegmon and suspected early abscess with no discrete drainable fluid collection at this time. The appendix itself is poorly delineated and likely necrotic or ruptured. No free air. REVIEW OF SYSTEMS: 12-point ROS completed with patient and negative unless otherwise stated in HPI or below. PHYSICAL EXAM: CONSTITUTIONAL: Conversive, good historian. A/O. Knows setting and context. Anxious. GENERAL: Well-developed and slightly above ideal body weight, in no respiratory distress. VITAL SIGNS: see record. HEENT: Sclerae are anicteric. No petechiae. CARDIAC: rhythm is regular. There is no S3 or rub. No harsh murmurs. Extremities show trace edema with symmetrical pulses. PULM: good air entry with no wheeze. ABDOMEN: Her guarding in the right lower quadrant, positive bowel sounds NEURO: Speech is fluent. A brief neurologic exam is negative. SKIN: No rashes, petechiae, concerning changes PSYCHIATRIC: Euthymic. ADMIT TO MEDSURG: FLOOR CARE DVT: Lovenox GI: PO intake Time spent: Today I spent 75 minutes seeing the patient, discussing the patient with ER staff, reviewing Expanse and EPIC notes/diagnostics, discussing the care plan with our care time that includes social work, PT/OT, pharmacy, RT, halfway and documenting my impressions and plan in the medical record. MEDICAL NECESSITY FOR HOSPITALIZATION Anticipated midnights in the hospital: Admitting diagnosis: Acute appendicitis Risk of morbidity and mortality: high Acuity is characterized as high and reflected in: Patient has a ruptured appendix with early abscess and extensive phlegmon, will need IV antibiotics and IV fluids and IV pain management. In addition he has significant mental health comorbidities. This patient will require hospital services as outlined in the assessment and plan in order to stabilize and be safely discharged to a lower level of care. Because of the risk and acuity as described above, this patient cannot be managed at a lower level of care. LENGTH OF STAY: 2 IP ? Anticipated LOS>2 midnights due to acuity of clinical presentation requiring inpatient level of care [facility] Medical History (Updated 12/02/24 @ 00:37 by Ayse Yeh MD) ADD (attention deficit disorder) ?F98.8 - Other specified behavioral and emotional disorders with onset usually occurring in childhood and adolescence (ICD-10) Polysubstance abuse ?F19.10 - Other psychoactive substance abuse, uncomplicated (ICD-10) Lumbar degenerative disc disease ?M51.36 - Other intervertebral disc degeneration, lumbar region (ICD-10) Osteoarthritis of right knee ?M17.11 - Unilateral primary osteoarthritis, right knee (ICD-10) Prediabetes ?R73.03 - Prediabetes (ICD-10) Numerous moles ?D22.9 - Melanocytic nevi, unspecified (ICD-10) Closed head injury ?S09.90XA - Unspecified injury of head, initial encounter (ICD-10) Arthritis ?M19.90 - Unspecified osteoarthritis, unspecified site (ICD-10) Surgical History (Updated 08/22/23 @ 07:39 by Apoorva Roman) Fracture of tibia ?S82.209A - Unspecified fracture of shaft of unspecified tibia, initial encounter for closed fracture (ICD-10) S/P arthroscopic partial medial meniscectomy (01/31/22) ?Z98.890 - Other specified postprocedural states (ICD-10) Family History (Updated 12/01/24 @ 22:42 by Nessa Dalton MD) Mother Vascular disease Father Vascular disease Family/Other Depression Anxiety Social History (Updated 12/01/24 @ 22:43 by Nessa Dalton MD) Narrative: Non-smoker, 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 He has a history of alcohol abuse and has been sober for 12 years. Has had difficulty with opioids in the past after surgery. Smoking Status: Never smoker Meds Home Medications and Allergies Allergies Allergy/AdvReac Type Severity Reaction Status Date / Time No Known Allergies Allergy Verified 12/01/24 19:20 Exam Const: Vital Signs, click to edit/add: Vital Signs - 24 hr 12/01/24 17:37 12/01/24 21:52 Temperature 99.3 F 100.0 F H Pulse Rate [Left P ulse Oximeter] 87 Pulse Rate [Right Pulse Oximeter] 73 Respiratory Rate 18 18 Blood Pressure [Le ft Arm] 159/82 H Blood Pressure [Ri ght Upper Arm] 143/70 H Pulse Oximetry 96 97 Oxygen Delivery Me thod Room Air Hospitalist - H&P: Result Labs Labs: Short CBC 12/01/24 Range/Units 19:10 WBC 13.18 H (4.50-11.00) K/uL Hgb 13.6 (13.5-17.5) gm/dL Hct 41.5 (37.0-53.0) % Plt Count 188 (140-440) K/uL BMP 12/01/24 19:10 Sodium 137 Potassium 4.3 Chloride 102 Carbon Dioxide 29 BUN 16 Creatinine 0.9 Glucose 102 Calcium 9.1 Urine 12/01/24 Range/Units 19:10 Urine Color Yellow (Yellow) Urine Appearance Clear (Clear) Urine pH 6.0 (5.0-8.5) Ur Specific [place] >= 1.030 (1.000-1.030) Urine Protein 2+ A (Negative) Urine Glucose (UA) Negative (Negative) Assessment and Plan Assessment and plan (1) Complex appendicitis: Problem comment: With perforation and large phlegmon -Zosyn q.6 -D5 half-normal with 20 of K, NPO at midnight in case surgical plans change -trend pain and labs -likely no surgery x 6 weeks -Toradol and acetaminophen for pain control with only breakthrough use of Dilaudid. No benzos. Status: Acute (2) Polysubstance abuse: Problem comment: History of alcohol abuse, 12.5 years sober History of dependence on opioids after her knee surgery. Status: Acute (3) Mixed anxiety depressive disorder: Problem comment: -continue Lamictal, Zoloft and trazodone Status: Deleted (4) Chronic insomnia: Problem comment: Continue trazodone Status: Acute
[2024-12-01 22:15] VITALS: BP 159/82; PULSE 87; RESP 18; TEMP 37.8; O2SAT 97
[2024-12-01 22:25] LABS: C Reactive Protein* 8.7 mg/dL (0.5-1.0)
--- NOTE | 2024-12-01 22:36 | P.GSCN_ITS ---
History of Present Illness Consult details Date Seen: 12/01/24 Consult date: 12/01/24 Narrative: The patient is a 59-year-old male who presented to the emergency department this evening with 6 days of right lower quadrant pain. Workup revealed a phlegmon in the right lower quadrant with likely perforated appendicitis. The patient states that the day after Yvette he developed soreness in his abdominal muscles which later moved to his right lower quadrant. This pain continued over the next few days. On Saturday evening he vomited. He has had intermittent nausea since then. He had was nauseated and almost vomited while he was in the emergency department, however this has improved. He states that he came in today because the pain simply did not go away. He was trying to wait it out until his son left town this morning and since the pain had not gone away he came in to be seen. His symptoms have been that he has had night sweats and chills but his significant other has taken his temperature and he has never had a fever at home. The pain has fluctuated over this time and has come and gone, however it is worse with movement. He has not had a bowel movement in 3 days. He has been trying to increase his water intake intake fiber however that has not helped. He states it is difficult for him to initiate his urine stream. He states that he was in the ER 2 weeks ago with anxiety and had vomiting at that time but did not have any abdominal pain. He is wondering if it was related to what he is dealing with now. He states that he had recently changed anxiety medication. He has had a colonoscopy in the past. This was done 9 years ago. [facility] Medical History (Updated 12/01/24 @ 22:47 by Ayse Yeh MD) ADD (attention deficit disorder) ?F98.8 - Other specified behavioral and emotional disorders with onset usually occurring in childhood and adolescence (ICD-10) Polysubstance abuse ?F19.10 - Other psychoactive substance abuse, uncomplicated (ICD-10) Lumbar degenerative disc disease ?M51.36 - Other intervertebral disc degeneration, lumbar region (ICD-10) Osteoarthritis of right knee ?M17.11 - Unilateral primary osteoarthritis, right knee (ICD-10) Prediabetes ?R73.03 - Prediabetes (ICD-10) Numerous moles ?D22.9 - Melanocytic nevi, unspecified (ICD-10) Closed head injury ?S09.90XA - Unspecified injury of head, initial encounter (ICD-10) Arthritis ?M19.90 - Unspecified osteoarthritis, unspecified site (ICD-10) Surgical History (Updated 08/22/23 @ 07:39 by Apoorva Roman) Fracture of tibia ?S82.209A - Unspecified fracture of shaft of unspecified tibia, initial encounter for closed fracture (ICD-10) S/P arthroscopic partial medial meniscectomy (01/31/22) ?Z98.890 - Other specified postprocedural states (ICD-10) Family History (Updated 12/01/24 @ 22:42 by Nessa Dalton MD) Mother Vascular disease Father Vascular disease Family/Other Depression Anxiety Social History (Updated 06/27/22 @ 15:40 by Mitch Kaur) Narrative: Non-smoker, 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 He has a history of alcohol abuse and has been sober for 12 years. Has had difficulty with opioids in the past after surgery. Smoking Status: Never smoker Meds Home Medications and Allergies Allergies Allergy/AdvReac Type Severity Reaction Status Date / Time No Known Allergies Allergy Verified 12/01/24 19:20 Exam Narrative: Exam Narrative: General appearance: Alert, cooperative, and in no distress Eyes: PERRLA, eye lids clear, and sclera white HENT Head: Normocephalic Ears: External ears normal Pulmonary: Breathing nonlabored on room air Cardiovascular Heart: Regular rate Extremities: warm and well perfused Gastrointestinal Abdominal: No scars. Patient is a nontender on the left side of his abdomen. His right upper quadrant is mildly tender to palpation. He is tender in the right lower quadrant with guarding. Musculoskeletal: Extremities: Upper: Both upper extremities have normal joint range of motion and intact strength. Lower: Both lower extremities have normal joint range of motion and intact strength. Skin: Normal skin color, texture, and turgor. Neurologic: No focal deficits Psychiatric: Alert, oriented, cooperative, slightly anxious and fidgety Const: Vital Signs, click to edit/add: Vital Signs - 24 hr 12/01/24 17:37 12/01/24 21:52 12/01/24 22:15 Temperature 99.3 F 100.0 F H 100.0 F H Pulse Rate [Left P ulse Oximeter] 87 87 Pulse Rate [Right Pulse Oximeter] 73 Respiratory Rate 18 18 18 Blood Pressure [Le ft Arm] 159/82 H 159/82 H Blood Pressure [Ri ght Upper Arm] 143/70 H Pulse Oximetry 96 97 97 Oxygen Delivery Me thod Room Air Room Air Results Labs Labs: Abnormal lab results 12/01/24 Range/Units 19:10 WBC 13.18 H (4.50-11.00) K/uL Neut % (Auto) 80.4 H (42.0-72.0) % Lymph % (Auto) 9.3 L (20-44) % Neut # (Auto) 10.60 H (1.7-7.0) K/uL [place] # (Auto) 1.20 H (0.00-0.90) K/UL Anion Gap 6 L (7-15) mEq/L C-Reactive Protein 8.7 H (0.5-1.0) mg/dL Urine Protein 2+ A (Negative) Urine Ketones Trace A (Negative) Urine Blood 3+ A (Negative) Urine Bilirubin 1+ A (Negative) Urine RBC 5-10 A (0-2) Urine Bacteria Few A (None) Fine Granular Casts Moderate A (None) Diabetes panel 12/01/24 Range/Units 19:10 Sodium 137 (135-149) mmol/L Potassium 4.3 (3.6-5.1) mmol/L Chloride 102 (96-114) mmol/L Carbon Dioxide 29 (20-32) mmol/L BUN 16 (7-30) mg/dL Creatinine 0.9 (0.5-1.5) mg/dL Glucose 102 (60-115) mg/dL Calcium 9.1 (8.4-10.6) mg/dL Calcium panel 12/01/24 Range/Units 19:10 Calcium 9.1 (8.4-10.6) mg/dL Pituitary panel 12/01/24 Range/Units 19:10 Sodium 137 (135-149) mmol/L Potassium 4.3 (3.6-5.1) mmol/L Chloride 102 (96-114) mmol/L Carbon Dioxide 29 (20-32) mmol/L BUN 16 (7-30) mg/dL Creatinine 0.9 (0.5-1.5) mg/dL Glucose 102 (60-115) mg/dL Calcium 9.1 (8.4-10.6) mg/dL Adrenal panel 12/01/24 Range/Units 19:10 Sodium 137 (135-149) mmol/L Potassium 4.3 (3.6-5.1) mmol/L Chloride 102 (96-114) mmol/L Carbon Dioxide 29 (20-32) mmol/L BUN 16 (7-30) mg/dL Creatinine 0.9 (0.5-1.5) mg/dL Glucose 102 (60-115) mg/dL Calcium 9.1 (8.4-10.6) mg/dL All other labs normal. Imaging Abdomen CT scan report/results: report reviewed and image reviewed Additional studies: CT scan abdomen pelvis done this evening: Impression: Acute appendicitis, favor complicated. Evaluation is degraded due to motion degradation, but there appears to be extensive phlegmon and suspected early abscess with no discrete drainable fluid collection at this time. The appendix itself is poorly delineated and likely necrotic or ruptured. No free air. Dictated by Gaurang Escobar MD @ 12/01/2024 8:41:03 PM Progress Note:A&P Assessment and plan (1) Polysubstance abuse: Status: Acute (2) Complex appendicitis: Status: Acute (3) Mixed anxiety depressive disorder: Status: Deleted Plan The patient is a 59-year-old male with perforated appendicitis and phlegmon with possible developing abscess. Based on imaging and timing of symptoms, I believe that the best course of action is to take an initial conservative approach with antibiotics as given the large amount inflammation, he has a higher likelihood of requiring an open operation and or need for larger resection. We discussed appendicitis and management. If we are able to successfully manage this conservatively, then we would plan on interval appendectomy in 6-8 weeks. I would recommend a colonoscopy prior to appendectomy since he has not had one in approximately 9 years. And I explained to the patient and his significant other that it is possible that he will develop an abscess despite being on antibiotics. If this is the case then we would plan on drainage and continuing antibiotics with the plan still being for interval appendectomy after 6 weeks. I would recommend that he be NPO after midnight and we can reassess in the morning if he is improving. I explained to him that he will likely discharge home on IV antibiotics with short-term follow-up. Repeat imaging will be necessary if he does not improve as expected. Have added on a CRP today and will trend this. He also has a history of anxiety and alcohol dependence. He has significant concerns about taking opioid pain medication because of difficulties weaning in the past when he has had surgery for tibia fracture. Discussed with the hospitalist and we will plan on Toradol and Tylenol as 1st line agents for pain. He has opioids available if needed. Hopefully when he discharges he will not need any additional pain medication prescribed.
[2024-12-01 23:00] VITALS: BP 146/87; PULSE 69; RESP 22; TEMP 37.9; O2SAT 93
[2024-12-01] MEDS: 5 % DEX/0.45 SOD CHL+KCL20 mEq 1,000 ML 125 ML IV (23:02)
[2024-12-01 23:14] VITALS: TEMP 37.9
[2024-12-01] MEDS: ACETAMINOPHEN 500 MG TABLET 1000 MG PO (23:14)
[2024-12-01] MEDS: TRAZODONE HCL 50 MG TABLET PO (23:50)
[2024-12-02] VITALS (8 sets, daily range): BP systolic 106–136; BP diastolic 65–85; PULSE 65–87; RESP 14–18; TEMP 36.2–37.8; O2SAT 93–97
[2024-12-02] MEDS: PIPERACILLIN/TAZOBACTAM 3.375 GM in 0.9 % SODIUM CHLORIDE Mini-bag 100 ML IVPB ×4 (01:56→20:15)
[2024-12-02] MEDS: KETOROLAC 15 MG/ML inj 30 MG IVP ×2 (01:56→14:00)
[2024-12-02] MEDS: ACETAMINOPHEN 500 MG TABLET 1000 MG PO ×2 (05:17→23:33)
--- NOTE | 2024-12-02 06:31 | PC.NURSE ---
End of shift report [id number]: Alert and oriented x 4. Pain to abdomen reported at 9-10/10 with movement and at times with reduce to 2-3/10 when laying still. Patient prefers to not use any opioid medications, he would like to use that as absolute last resort due to him currently being in recovery for opioid dependence. PRN ketorolac utilized with moderate relief of pain. Nausea reported, prn zofran with effective results. At 2310 patient had temp of 100.3, reported feeling chills and shaky. PRN tylenol administered and fever reduced to 97.9. At 0510 patient placed mobile application architect light, he was diaphoretic, had chills and was having visual shaking. Temp 97.1, blood glucose checked and 109. PRN tylenol administered for chills and feverish feeling. Bowel sounds active x 4 quadrants, abdomen is soft and tender to the touch. NPO at midnight.
[2024-12-02 07:06] LABS: Hematocrit 37.6 % (37.0-53.0); Hemoglobin* 12.4 gm/dL (13.5-17.5); Mean Corpuscular HGB Conc 33 gm/dL (32-36); Mean Corpuscular Hemoglobin 29 pg (26-34); Mean Corpuscular Volume 89 fL (80-100); Platelet Count* 176 K/uL (140-440); Red Blood Count 4.22 m/uL (4.30-5.90); White Blood Count* 12.05 K/uL (4.50-11.00)
[2024-12-02 07:13] LABS: Slide Review Reflex No
[2024-12-02 07:20] LABS: Albumin* 3.6 g/dL (3.3-5.0); Chloride* 104 mmol/L (96-114)
[2024-12-02 07:21] LABS: Potassium* 4.1 mmol/L (3.6-5.1); Sodium* 137 mmol/L (135-149)
[2024-12-02 07:23] LABS: Bilirubin Total* 1.2 mg/dL (0.1-1.5); Creatinine* 1.2 mg/dL (0.5-1.5); Est. Creatinine Clearance* 70.59; Estimated Glomerular Filt Rate 70 ml/min
[2024-12-02 07:24] LABS: Alanine Aminotransferase* 20 U/L (4-50); Alkaline Phosphatase* 49 U/L (40-150); Anion Gap 4 mEq/L (7-15); Aspartate Amino Transferase* 23 U/L (12-35); Blood Urea Nitrogen* 16 mg/dL (7-30); Calcium* 8.5 mg/dL (8.4-10.6); Carbon Dioxide* 29 mmol/L (20-32); Glucose* 117 mg/dL (60-115); Total Protein* 6.3 g/dL (6.0-8.3)
[2024-12-02 07:39] LABS: Appearance Urine Clear (Clear); Bilirubin Urine Negative (Negative); Blood Urine 2+ (Negative); Color Urine Yellow (Yellow); Glucose Urine Negative (Negative); Ketones Urine Negative (Negative); Leukocyte Esterase Urine Negative (Negative); Nitrite Urine Negative (Negative); Protein Urine Negative (Negative); Specific Gravity Urine <= 1.005 (1.000-1.030); Urobilinogen Urine 0.2 (0.2-1.0)
[2024-12-02 07:48] LABS: C Reactive Protein* 17.5 mg/dL (0.5-1.0)
[2024-12-02 07:56] LABS: Squamous Epithelial Cell Urine Few (None-Few); WBC Urine 0-2 (0-5)
[2024-12-02] MEDS: SERTRALINE 100 MG TABLET 200 MG PO (09:29)
[2024-12-02] MEDS: lamoTRIgine 100 MG TABLET 400 MG PO (09:29)
[2024-12-02] MEDS: 5 % DEX/0.45 SOD CHL+KCL20 mEq 1,000 ML 125 ML IV (09:29)
[2024-12-02] MEDS: SODIUM CHLORIDE 0.9 % (FLUSH) 10 ML SYRINGE 5 ML IVF ×2 (09:30→20:21)
[2024-12-02] MEDS: SENNOSIDES/DOCUSATE TABLET 1 TAB PO ×2 (10:48→20:11)
--- NOTE | 2024-12-02 12:59 | PM.GSPN ---
Subjective Subjective Date Seen: 12/02/24 Interval history: Nathan is feeling better this morning. He had chills overnight but no fevers. He has been tolerating clears. He has not had any nausea. He has been passing flatus. He has been trying to avoid opioid pain medicine and has been tolerating Toradol and Tylenol as needed. Exam Narrative: Exam Narrative: General: No acute distress CV: Regular rate Respiratory: Breathing nonlabored on room air Abdomen: Nondistended. Bowel sounds are present. He is softer and nontender in the left abdomen and right upper abdomen. Still quite tender in the right lower abdomen. Const: Vital Signs, click to edit/add: Vital Signs - 24 hr 12/01/24 17:37 12/01/24 21:52 12/01/24 21:52 Temperature 99.3 F 100.0 F H Pulse Rate [Left P ulse Oximeter] 87 Pulse Rate [Right Pulse Oximeter] 73 Respiratory Rate 18 18 18 Blood Pressure [Le ft Arm] 159/82 H Blood Pressure [Ri ght Arm] Blood Pressure [Ri ght Upper Arm] 143/70 H Pulse Oximetry 96 97 97 [facility] Room Air 12/01/24 22:15 12/01/24 23:00 12/01/24 23:00 Temperature 100.0 F H 100.3 F H Pulse Rate [Left P ulse Oximeter] 87 69 69 Pulse Rate [Right Pulse Oximeter] Respiratory Rate 18 22 22 Blood Pressure [Le ft Arm] 159/82 H 146/87 H Blood Pressure [Ri ght Arm] Blood Pressure [Ri ght Upper Arm] Pulse Oximetry 97 93 [facility] Room Air 12/01/24 23:14 12/02/24 02:15 12/02/24 03:00 Temperature 100.3 F H 97.9 F 97.9 F Pulse Rate [Left P ulse Oximeter] 75 Pulse Rate [Right Pulse Oximeter] Respiratory Rate 18 Blood Pressure [Le ft Arm] Blood Pressure [Ri ght Arm] 110/65 Blood Pressure [Ri ght Upper Arm] Pulse Oximetry 96 Oxygen Delivery Ar thod Room Air 12/02/24 05:17 12/02/24 07:00 12/02/24 07:00 Temperature 97.1 F L 98.4 F Pulse Rate [Left P ulse Oximeter] 78 78 Pulse Rate [Right Pulse Oximeter] Respiratory Rate 16 16 Blood Pressure [Le ft Arm] Blood Pressure [Ri ght Arm] 106/66 Blood Pressure [Ri ght Upper Arm] Pulse Oximetry 95 Oxygen Delivery Me thod Room Air Labs/Imaging Labs Labs: White blood cell count is down slightly to 12 from 13.8. CRP is up to 17.5 from 8.7. Progress Note:A&P Assessment and plan (1) Complex appendicitis: Status: Acute (2) Adjustment disorder with mixed anxiety and depressed mood: Status: Acute (3) ADD (attention deficit disorder): Status: Acute Plan The patient is a 59-year-old male with acute perforated appendicitis with large phlegmon. He has done well overnight on 12 hours of IV antibiotics. -Will advance to clear liquids today. -continue IV antibiotic -recheck labs tomorrow. -Continue home medications for anxiety and sleep. -encourage ambulation -okay for DVT prophylaxis -anticipate discharge home in 1-2 days on outpatient IV antibiotics as long as he continues to improve clinically.
--- NOTE | 2024-12-02 15:53 | P.IMPN_ITS ---
Progress Note: A&P Assessment and plan (1) Complex appendicitis: Problem details: With perforation and large phlegmon -Zosyn q.6 -D5 half-normal with 20 of K, NPO at midnight in case surgical plans change -trend pain and labs -likely no surgery x 6 weeks -Toradol and acetaminophen for pain control with only breakthrough use of Dilaudid. No benzos. Starting clear liquid diet on 12/02 General surgery following Status: Acute (2) Polysubstance abuse: Problem details: History of alcohol abuse, 12.5 years sober History of dependence on opioids after her knee surgery - thus avoidance of benzos and narcotics for this hospitalization Status: Acute (3) Mixed anxiety depressive disorder: Problem details: -continue Lamictal, Zoloft and trazodone Status: Deleted (4) Chronic insomnia: Problem details: Continue trazodone Status: Acute Plan Following plan per General surgery Time Spent With Patient Total time spent: Total time spent caring for the patient today was 45 minutes. This includes time spent for the visit reviewing the chart, time spent during the visit, time spent after the visit and documentation and planning in coordination of care. Subjective Date Seen: 12/02/24 Interval history: Patient is seen lying reclined in bed this morning. Reporting feeling much better. Pain adequately managed with Tylenol. Denies nausea or vomiting. Has not had a bowel movement in about 4 days which is unusual for him. Denies headache or dizziness. Denies chest pain or shortness of breath. Continues on IV antibiotics. As discussed with General surgery this morning, will start clear liquid diet. Exam Narrative: Exam Narrative: PHYSICAL EXAM General: Pleasant, conversant, NAD HEENT: Normocephalic, atraumatic, sclera white, EOMI, oral mucosa moist Cardiovascular: RRR, S1S2. No pitting edema Pulmonary: CTA bilaterally without rhonchi, rales, expiratory wheezes. No dyspnea Abdominal: Soft, nondistended, mild tenderness right lower quadrant without guarding Neurological: Alert, answering questions appropriately, cranial nerves intact, no focal findings Extremities: No gross joint deformity or swelling. AROMI. Neurovascularly intact Skin: Warm, dry. Const: Vital Signs, click to edit/add: Vital Signs - 24 hr 12/01/24 17:37 12/01/24 21:52 12/01/24 21:52 Temperature 99.3 F 100.0 F H Pulse Rate [Left P ulse Oximeter] 87 Pulse Rate [Right Pulse Oximeter] 73 Respiratory Rate 18 18 18 Blood Pressure [Le ft Arm] 159/82 H Blood Pressure [Ri ght Arm] Blood Pressure [Ri ght Upper Arm] 143/70 H Pulse Oximetry 96 97 97 [facility] 12/01/24 22:15 12/01/24 23:00 12/01/24 23:00 Temperature 100.0 F H 100.3 F H Pulse Rate [Left P ulse Oximeter] 87 69 69 Pulse Rate [Right Pulse Oximeter] Respiratory Rate 18 22 22 Blood Pressure [Le ft Arm] 159/82 H 146/87 H Blood Pressure [Ri ght Arm] Blood Pressure [Ri ght Upper Arm] Pulse Oximetry 97 93 [facility] Room Air 12/01/24 23:14 12/02/24 02:15 12/02/24 03:00 Temperature 100.3 F H 97.9 F 97.9 F Pulse Rate [Left P ulse Oximeter] 75 Pulse Rate [Right Pulse Oximeter] Respiratory Rate 18 Blood Pressure [Le ft Arm] Blood Pressure [Ri ght Arm] 110/65 Blood Pressure [Ri ght Upper Arm] Pulse Oximetry 96 [facility] 12/02/24 05:17 12/02/24 07:00 12/02/24 07:00 Temperature 97.1 F L 98.4 F Pulse Rate [Left P ulse Oximeter] 78 78 Pulse Rate [Right Pulse Oximeter] Respiratory Rate 16 16 Blood Pressure [Le ft Arm] Blood Pressure [Ri ght Arm] 106/66 Blood Pressure [Ri ght Upper Arm] Pulse Oximetry 95 [facility] 12/02/24 11:00 Temperature 98.4 F Pulse Rate [Left P ulse Oximeter] 69 Pulse Rate [Right Pulse Oximeter] Respiratory Rate 14 Blood Pressure [Le ft Arm] Blood Pressure [Ri ght Arm] 135/73 Blood Pressure [Ri ght Upper Arm] Pulse Oximetry 96 [facility] Labs Labs: Laboratory Results - last 24 hr 12/01/24 12/01/24 12/02/24 19:10 22:06 05:56 WBC 13.18 H 12.05 H RBC 4.65 4.22 L Hgb 13.6 12.4 L Hct 41.5 37.6 MCV 89 89 MCH 29 29 MCHC 33 33 RDW Coeff of Raphael 12.7 Plt Count 188 176 Neut % (Auto) 80.4 H Lymph % (Auto) 9.3 L [place] % (Auto) 9.0 Eos % (Auto) 0.9 Baso % (Auto) 0.2 Neut # (Auto) 10.60 H Lymph # (Auto) 1.20 [place] # (Auto) 1.20 H Eos # (Auto) 0.10 Baso # (Auto) 0.00 Abs Immat Gran (auto) 0.00 Imm/Tot Granulo (auto) 0.2 Sodium 137 137 Potassium 4.3 4.1 Chloride 102 104 Carbon Dioxide 29 29 Anion Gap 6 L 4 L BUN 16 16 Creatinine 0.9 1.2 Estimated Creat Clear 94.13 70.59 Estimated GFR 98 70 Glucose 102 117 H Calcium 9.1 8.5 Total Bilirubin 1.2 AST 23 ALT 20 Alkaline Phosphatase 49 C-Reactive Protein 8.7 H 17.5 H Total Protein 6.3 Albumin 3.6 Urine Color Yellow Urine Appearance Clear Urine pH 6.0 Ur Specific [place] >= 1.030 Urine Protein 2+ A Urine Glucose (UA) Negative Urine Ketones Trace A Urine Blood 3+ A Urine Nitrite Negative Urine Bilirubin 1+ A Urine Urobilinogen 0.2 Ur Leukocyte Esterase Negative Urine RBC 5-10 A Urine WBC 2-5 Ur Squamous Epith Cells None Urine Bacteria Few A Fine Granular Casts Moderate A Lab Acknowledgement Test Added 12/02/24 07:25 WBC RBC Hgb Hct MCV MCH MCHC RDW Coeff of Raphael Plt Count Neut % (Auto) Lymph % (Auto) [place] % (Auto) Eos % (Auto) Baso % (Auto) Neut # (Auto) Lymph # (Auto) [place] # (Auto) Eos # (Auto) Baso # (Auto) Abs Immat Gran (auto) Imm/Tot Granulo (auto) Sodium Potassium Chloride Carbon Dioxide Anion Gap BUN Creatinine Estimated Creat Clear Estimated GFR Glucose Calcium Total Bilirubin AST ALT Alkaline Phosphatase C-Reactive Protein Total Protein Albumin Urine Color Yellow Urine Appearance Clear Urine pH 6.0 Ur Specific [place] <= 1.005 Urine Protein Negative Urine Glucose (UA) Negative Urine Ketones Negative Urine Blood 2+ A Urine Nitrite Negative Urine Bilirubin Negative Urine Urobilinogen 0.2 Ur Leukocyte Esterase Negative Urine RBC 5-10 A Urine WBC 0-2 Ur Squamous Epith Cells Few Urine Bacteria None Fine Granular Casts Lab Acknowledgement
--- NOTE | 2024-12-02 19:20 | PC.NURSE ---
Patient is alert and oriented, pleasant and cooperative. IV Toradol administered once with relief. Patient hesitant to take pain meds and would like to be asked about pain med options prior to administering meds. Patient tolerating a clear liquid diet, reports passing gas and denies N/V. Patient ambulating independently to BR and in hallway.
[2024-12-02] MEDS: ENOXAPARIN 40 MG/0.4 ML INJ SUBCUT (20:11)
[2024-12-02] MEDS: KETOROLAC 30 MG/ML inj IVP (20:13)
[2024-12-02] MEDS: TRAZODONE HCL 50 MG TABLET PO (20:21)
[2024-12-03] MEDS: PIPERACILLIN/TAZOBACTAM 3.375 GM in 0.9 % SODIUM CHLORIDE Mini-bag 100 ML IVPB ×2 (02:13→08:06)
[2024-12-03] MEDS: KETOROLAC 30 MG/ML inj IVP (02:13)
[2024-12-03 03:11] VITALS: BP 111/61; PULSE 66; RESP 18; TEMP 36.4; O2SAT 97
--- NOTE | 2024-12-03 06:20 | PC.NURSE ---
End of shift summary: Pt has been A&O and VSS overnight. Spiked a fever of 100.1 beginning of the shift then resolved overnight to the 97-98 range. Throughout the night patient was drenched in sweat, needing x2 clothing and linen changes. All the while he remained afebrile and feeling ?much better than when he came in?. He rated his pain 2-4/10 receiving PRN Toradol & Tylenol overnight. Pt reported having x1 small loose BM. BS active x4 and no distention. Tolerated clear liquids without nausea. PIV in right AC SL overnight, maintenance fluids not indicated since he?s able to take in PO.?
[2024-12-03 07:10] LABS: Hematocrit 37.8 % (37.0-53.0); Hemoglobin* 12.5 gm/dL (13.5-17.5); Mean Corpuscular HGB Conc 33 gm/dL (32-36); Mean Corpuscular Hemoglobin 30 pg (26-34); Mean Corpuscular Volume 90 fL (80-100); Platelet Count* 185 K/uL (140-440); Red Blood Count 4.22 m/uL (4.30-5.90); White Blood Count* 8.14 K/uL (4.50-11.00)
[2024-12-03 07:30] LABS: Albumin* 3.5 g/dL (3.3-5.0); Chloride* 109 mmol/L (96-114); Sodium* 141 mmol/L (135-149)
[2024-12-03 07:31] LABS: Potassium* 4.5 mmol/L (3.6-5.1); Slide Review Reflex No
[2024-12-03 07:33] LABS: Anion Gap 6 mEq/L (7-15); Aspartate Amino Transferase* 20 U/L (12-35); Bilirubin Total* 0.7 mg/dL (0.1-1.5); Carbon Dioxide* 26 mmol/L (20-32); Creatinine* 1.1 mg/dL (0.5-1.5); Est. Creatinine Clearance* 77.01; Estimated Glomerular Filt Rate 77 ml/min; Total Protein* 6.4 g/dL (6.0-8.3)
[2024-12-03 07:34] LABS: Alanine Aminotransferase* 19 U/L (4-50); Alkaline Phosphatase* 50 U/L (40-150); Blood Urea Nitrogen* 13 mg/dL (7-30); Calcium* 8.9 mg/dL (8.4-10.6); Glucose* 98 mg/dL (60-115)
[2024-12-03 07:51] LABS: C Reactive Protein* 21.4 mg/dL (0.5-1.0)
[2024-12-03 08:01] VITALS: BP 135/79; PULSE 60; RESP 18; TEMP 37.1; O2SAT 96
[2024-12-03] MEDS: SODIUM CHLORIDE 0.9 % (FLUSH) 10 ML SYRINGE 5 ML IVF ×2 (08:06→20:19)
[2024-12-03] MEDS: SENNOSIDES/DOCUSATE TABLET 1 TAB PO (08:46)
[2024-12-03] MEDS: SERTRALINE 100 MG TABLET 200 MG PO (08:46)
[2024-12-03] MEDS: lamoTRIgine 100 MG TABLET 400 MG PO (08:48)
--- NOTE | 2024-12-03 10:13 | PM.IMPN1 ---
Progress Note: A&P Assessment and plan (1) Complex appendicitis: Problem details: With perforation and large phlegmon -Zosyn q.6 -D5 half-normal with 20 of K, NPO at midnight in case surgical plans change -trend pain and labs -likely no surgery x 6 weeks -Toradol and acetaminophen for pain control with only breakthrough use of Dilaudid. No benzos. Starting clear liquid diet on 12/02 General surgery following 12/03/24 - discussed with Dr. Marek. JENKINS. Plan for outpatient antibiotics, ertapenem Q 24 hours, 7-10 days. Outpatient follow-up in the General surgery Clinic on Saturday12/08/2024. Discontinuing Zosyn today, starting ertapenem. PICC/midline order has been placed. Likely d/c 12/04/24 Status: Acute (2) Polysubstance abuse: Problem details: History of alcohol abuse, 12.5 years sober History of dependence on opioids after her knee surgery - thus avoidance of benzos and narcotics for this hospitalization Status: Acute (3) Mixed anxiety depressive disorder: Problem details: -continue Lamictal, Zoloft and trazodone Status: Deleted (4) Chronic insomnia: Problem details: Continue trazodone Status: Acute Plan 12/03/24 - discussed with Dr. Marek. JENKINS. Plan for outpatient antibiotics, ertapenem Q 24 hours, 7-10 days. Outpatient follow-up in the General surgery Clinic on Saturday12/08/2024. Discontinuing Zosyn today, starting ertapenem. PICC/midline order has been placed. Likely d/c 12/04/24 Time Spent With Patient Total time spent: Total time spent caring for the patient today was 45 minutes. This includes time spent for the visit reviewing the chart, time spent during the visit, time spent after the visit and documentation and planning in coordination of care. Subjective Date Seen: 12/03/24 Interval history: Patient is seen with at bedside. Continues to improve. Feeling better today than yesterday. Continues to have a small amount of pain in the right lower quadrant rating it a 1-2/10. No longer interferes with movement. Tolerating clears and hungry for more. No nausea vomiting. No worsening pain with oral intake. Did have a fever of 100.1? last night at 8:00 p.m.. Exam Narrative: Exam Narrative: PHYSICAL EXAM General: Pleasant, conversant, NAD HEENT: Normocephalic, atraumatic, sclera white, EOMI, oral mucosa moist Cardiovascular: RRR, S1S2. No pitting edema Pulmonary: CTA bilaterally without rhonchi, rales, expiratory wheezes. No dyspnea Abdominal: Soft, nondistended, very minimal tenderness right lower quadrant without guarding-improved from yesterday Neurological: Alert, answering questions appropriately, cranial nerves intact, no focal findings Extremities: No gross joint deformity or swelling. AROMI. Neurovascularly intact Skin: Warm, dry. Const: Vital Signs, click to edit/add: Vital Signs - 24 hr 12/02/24 11:00 12/02/24 15:00 12/02/24 15:00 Temperature 98.4 F 98.9 F Pulse Rate [Left P ulse Oximeter] 69 71 71 Respiratory Rate 14 16 16 Blood Pressure [Ri ght Arm] 135/73 121/70 Pulse Oximetry 96 93 Oxygen Delivery Ga thod Room Air Room Air 12/02/24 20:00 12/02/24 23:30 12/02/24 23:30 Temperature 100.1 F H 98 F Pulse Rate [Left P ulse Oximeter] 87 65 65 Respiratory Rate 18 18 18 Blood Pressure [Ri ght Arm] 136/85 128/80 Pulse Oximetry 97 [facility] 12/03/24 03:11 12/03/24 08:01 Temperature 97.5 F L 98.7 F Pulse Rate [Left P ulse Oximeter] 66 60 Respiratory Rate 18 18 Blood Pressure [Ri ght Arm] 111/61 135/79 Pulse Oximetry 97 96 Oxygen Delivery Ga thod Room Air Labs Labs: Laboratory Results - last 24 hr 12/03/24 06:34 WBC 8.14 RBC 4.22 L Hgb 12.5 L Hct 37.8 MCV 90 MCH 30 MCHC 33 Plt Count 185 Sodium 141 Potassium 4.5 Chloride 109 Carbon Dioxide 26 Anion Gap 6 L BUN 13 Creatinine 1.1 Estimated Creat Clear 77.01 Estimated GFR 77 Glucose 98 Calcium 8.9 Total Bilirubin 0.7 AST 20 ALT 19 Alkaline Phosphatase 50 C-Reactive Protein 21.4 H Total Protein 6.4 Albumin 3.5
[2024-12-03] MEDS: ERTAPENEM 1 GM in 0.9 % SODIUM CHLORIDE Mini-bag 100 ML IVPB (10:39)
[2024-12-03 11:09] VITALS: BP 141/83; PULSE 67; RESP 16; TEMP 37.1; O2SAT 100
[2024-12-03 14:40] VITALS: BP 125/79; PULSE 71; RESP 18; TEMP 36.8; O2SAT 96
--- NOTE | 2024-12-03 15:13 | PM.GSPN ---
Subjective Subjective Date Seen: 12/03/24 Interval history: Nathan is doing better. He would like to have a regular diet. He is stooling. No fevers. Pain is much improved. Exam Narrative: Exam Narrative: General: No acute distress CV: Regular rate Respiratory: Breathing nonlabored on room air Abdomen: Soft. Mildly tender in the right lower quadrant. Const: Vital Signs, click to edit/add: Vital Signs - 24 hr 12/02/24 20:00 12/02/24 23:30 12/02/24 23:30 Temperature 100.1 F H 98 F Pulse Rate [Left P ulse Oximeter] 87 65 65 Respiratory Rate 18 18 18 Blood Pressure [Ri ght Arm] 136/85 128/80 Pulse Oximetry 97 96 Oxygen Delivery Me thod Room Air Room Air 12/03/24 03:11 12/03/24 08:01 12/03/24 11:09 Temperature 97.5 F L 98.7 F 98.7 F Pulse Rate [Left P ulse Oximeter] 66 60 67 Respiratory Rate 18 18 16 Blood Pressure [Ri ght Arm] 111/61 135/79 141/83 H Pulse Oximetry 97 96 100 Oxygen Delivery Me thod Room Air Room Air 12/03/24 14:40 Temperature 98.3 F Pulse Rate [Left P ulse Oximeter] 71 Respiratory Rate 18 Blood Pressure [Ri ght Arm] 125/79 Pulse Oximetry 96 Oxygen Delivery Me thod Room Air Labs/Imaging Labs Labs: White blood cell count today is 8 from 12. CRP is up to 21 from 17. Progress Note:A&P Assessment and plan (1) Complex appendicitis: Status: Acute (2) Adjustment disorder with mixed anxiety and depressed mood: Status: Acute (3) ADD (attention deficit disorder): Status: Acute (4) Polysubstance abuse: Status: Acute Plan The patient is a 59-year-old male with perforated appendicitis with phlegmon being managed initially with IV antibiotics. -continue IV antibiotics and will plan on additional antibiotics as outpatient. -advance diet to regular. -continued Lovenox for DVT prophylaxis. -PICC line to be placed for outpatient IV antibiotics -if he continues to have improved labs and is tolerating a diet, he could potentially discharge home tomorrow with short-term follow-up next week. -discussed expected course with the patient and his .
--- NOTE | 2024-12-03 18:28 | PC.NURSE ---
Pt alert and oriented. Pt pleasant and cooperative. Pt had complaints of pain ranging 1-3; Pt tolerating and doesn't want pain medications at this time. VS WNL, afebrile. Pt up independently and walking in the hallways frequently. Pt is awaiting PIIC line placement. Per surgeon hopefully discharge tomorrow.?
--- NOTE | 2024-12-03 18:41 | PC.NURSE ---
Pt advanced to regular diet and tolerated well. No complaints of N/V.
[2024-12-03 19:00] VITALS: BP 137/84; PULSE 67; RESP 18; TEMP 37.3; O2SAT 96
[2024-12-03] MEDS: TRAZODONE HCL 50 MG TABLET PO (20:18)
[2024-12-03] MEDS: ENOXAPARIN 40 MG/0.4 ML INJ SUBCUT (20:18)
[2024-12-03] MEDS: ACETAMINOPHEN 500 MG TABLET 1000 MG PO (22:17)
[2024-12-03 22:22] VITALS: BP 140/83; PULSE 71; RESP 18; TEMP 37.3; O2SAT 94
[2024-12-04 03:00] VITALS: BP 137/83; PULSE 83; RESP 18; TEMP 36.6; O2SAT 96
--- NOTE | 2024-12-04 05:37 | PC.NURSE ---
[id number] Pt slept well during night, woke up x1 drenched in sweat, change of clothes and bedding required, temp 97.8. pain controlled with PO tylenol, rating 1-3/10. loose stools at beginning of shift, none during the night.
[2024-12-04 06:27] LABS: Hematocrit 36.9 % (37.0-53.0); Hemoglobin* 12.3 gm/dL (13.5-17.5); Mean Corpuscular HGB Conc 33 gm/dL (32-36); Mean Corpuscular Hemoglobin 29 pg (26-34); Mean Corpuscular Volume 88 fL (80-100); Platelet Count* 207 K/uL (140-440); Red Blood Count 4.18 m/uL (4.30-5.90); White Blood Count* 8.06 K/uL (4.50-11.00)
[2024-12-04 06:32] LABS: Slide Review Reflex No
[2024-12-04 06:54] LABS: Albumin* 3.7 g/dL (3.3-5.0); Chloride* 107 mmol/L (96-114); Sodium* 140 mmol/L (135-149)
[2024-12-04 06:55] LABS: Potassium* 4.3 mmol/L (3.6-5.1)
[2024-12-04 06:57] LABS: Alkaline Phosphatase* 56 U/L (40-150); Anion Gap 4 mEq/L (7-15); Aspartate Amino Transferase* 22 U/L (12-35); Bilirubin Total* 0.5 mg/dL (0.1-1.5); Carbon Dioxide* 29 mmol/L (20-32); Est. Creatinine Clearance* 84.71; Estimated Glomerular Filt Rate 87 ml/min; Total Protein* 6.6 g/dL (6.0-8.3)
[2024-12-04 06:58] LABS: Alanine Aminotransferase* 19 U/L (4-50); Blood Urea Nitrogen* 10 mg/dL (7-30); Glucose* 99 mg/dL (60-115)
[2024-12-04 07:00] VITALS: BP 127/80; PULSE 70; RESP 18; TEMP 36.8; O2SAT 97
[2024-12-04 07:16] LABS: C Reactive Protein* 14.6 mg/dL (0.5-1.0)
[2024-12-04] MEDS: ACETAMINOPHEN 500 MG TABLET 1000 MG PO (07:55)
[2024-12-04] MEDS: SERTRALINE 100 MG TABLET 200 MG PO (07:56)
[2024-12-04] MEDS: SODIUM CHLORIDE 0.9 % (FLUSH) 10 ML SYRINGE 5 ML IVF (09:36)
[2024-12-04] MEDS: ERTAPENEM 1 GM in 0.9 % SODIUM CHLORIDE Mini-bag 100 ML IVPB (09:36)
--- NOTE | 2024-12-04 09:41 | P.DS_ITS ---
DS: Providers Provider Time Seen by Provider: 09:15 Date Seen: 12/04/24 Date of admission: 12/01/24 22:15 Primary care physician: Christiano Montes MD Admitting Clinician: Ayse Yeh MD Attending Physician on discharge: Orin New MD Date of Discharge: 12/04/24 DS: Diagnosis Discharge Diagnosis (1) Complex appendicitis: Status: Acute Problem details: 12/01 - With perforation and large phlegmon -Zosyn q.6 -D5 half-normal with 20 of K, NPO at midnight in case surgical plans change -trend pain and labs -likely no surgery x 6 weeks -Toradol and acetaminophen for pain control with only breakthrough use of Dilaudid. No benzos. 12/02 - Starting clear liquid diet on 12/02 -General surgery following 12/03/24 - discussed with Dr. Dalton. ALICE. Plan for outpatient antibiotics, ertapenem Q 24 hours, 7-10 days. Outpatient follow-up in the General surgery Clinic on Saturday12/08/2024. Discontinuing Zosyn today, starting ertapenem. PICC/midline order has been placed. Likely d/c 12/04/2412/04 - discussed with Dr. Dalton. Outpatient appt with Sha next Saturday. She will reassess duration of antibiotics then and thought he could just do IV for outpatient antibiotic. PICC canceled. Outpatient daily IV Ertapenem ordered; will get a dose today before discharge. Time spent with patient and his today answering their questions about appendicitis, perforation, rupture, etc. (2) Polysubstance abuse: Status: Inactive Problem details: History of alcohol abuse, 12.5 years sober History of dependence on opioids after her knee surgery - thus avoidance of benzos and narcotics for this hospitalization (3) Adjustment disorder with mixed anxiety and depressed mood: Status: Chronic (4) ADD (attention deficit disorder): Status: Chronic Problem details: weaned off Stratera recently (5) Chronic insomnia: Status: Chronic Problem details: Continue trazodone DS: Summary Hospital Course Hospital Course: Per H&P: 59-year-old male with history of anxiety who presents today with abdominal pain. Patient reports 5-6 days of right lower quadrant abdominal pain. Decreased stool output. No urinary symptoms. Nausea and did have some vomiting. Pain is worse with movement, worse with eating. No prior abdominal surgeries. Has taken ibuprofen for this. ER COURSE: imaging, fluids, pain management, antibiotics - Complex appendicitis with perforation and large phlegmon on imaging. General surgery, Dr. Dalton, consulted and recommended ertapenem. Doing well with general diet. Pain improved. Will f/u in surgery clinic Saturday to determine duration of treatment with antibiotics. Discharged in improved and stable condition. Time Spent with Patient Time attestation: Total time spent providing and/or coordinating discharge services: 40 minutes, greater than 50% of which included discussion with patient and to answer their questions, discussion with general surgery, pharmacy, nursing staff. Exam Narrative: Exam Narrative: General: No acute distress. Awake, alert, oriented. No pallor. No jaundice. Oropharynx: Clear. Mucous membranes moist. Cardiovascular: Regular rate and rhythm. No murmurs, gallops, or rubs. Respiratory: Clear to auscultation bilaterally. No wheezes or crackles. Abdomen: Bowel sounds present. Soft, nondistended, mildly tender in RLQ. Const: Vital Signs, click to edit/add: Vital Signs - 24 hr 12/03/24 11:09 12/03/24 14:40 12/03/24 19:00 Temperature 98.7 F 98.3 F 99.2 F Pulse Rate [Left P ulse Oximeter] 67 71 67 Respiratory Rate 16 18 18 Blood Pressure [Ri ght Arm] 141/83 H 125/79 137/84 Pulse Oximetry 100 96 96 Oxygen Delivery Me thod Room Air Room Air Room Air 12/03/24 22:22 12/04/24 03:00 12/04/24 07:00 Temperature 99.1 F 97.9 F 98.3 F Pulse Rate [Left P ulse Oximeter] 71 83 70 Respiratory Rate 18 18 18 Blood Pressure [Ri ght Arm] 140/83 H 137/83 127/80 Pulse Oximetry 94 96 97 Oxygen Delivery Me thod Room Air Room Air Room Air DS: Data Data Completed and Pending Completed studies during hospitalization: 12/01/2024 EKG: Normal sinus rhythm, 79 beats per minute, left anterior fascicular block, abnormal EKG. Ordering Physician: Linden Haas M.D. Date of Service: 12/01/24 Procedure(s): CT abdomen pelvis w con Accession Number(s): [id number] cc: Christiano Montes M.D.; Linden Haas M.D.~ For Patients: As a result of the Century Cures Act, medical imaging exams and procedure reports are released immediately into your electronic medical record. You may view this report before your referring provider. If you have questions, please contact your health care provider. Indication: Right lower quadrant pain Technique: CT through the abdomen and pelvis following 95 mL Isovue 370 IV contrast Comparison: CT abdomen and pelvis performed 01/22/2016 Findings: Motion degraded examination. Lower chest: No acute abnormality appreciated. Hepatobiliary: No significant parenchymal abnormality is appreciated. Spleen: Unremarkable. Pancreas: No acute abnormality appreciated. Adrenal glands: No acute abnormality appreciated. Kidneys: No significant parenchymal abnormality appreciated. No visualized calculi. No hydronephrosis. Bowel: No obstruction. Severe stranding in the right lower quadrant. The appendix is not distinctly visualized and is largely irregular and indistinct in the right lower quadrant. Presumed appendicolith noted. Vascular: No acute abnormality appreciated. Lymph nodes: No gross lymphadenopathy. Peritoneum: Phlegmon in the right lower quadrant with no organized abscess. : No acute abnormality appreciated. Soft tissues: No acute abnormality appreciated. Bones: No acute fracture. No lytic or blastic lesion. Mild degenerative changes. Impression: Acute appendicitis, favor complicated. Evaluation is degraded due to motion degradation, but there appears to be extensive phlegmon and suspected early abscess with no discrete drainable fluid collection at this time. The appendix itself is poorly delineated and likely necrotic or ruptured. No free air. Please note that all CT scans at this facility use dose modulation, iterative reconstruction, and/or weight-based dosing when appropriate to reduce radiation dose to as low as reasonably achievable. Dictated by Gaurang Escobar MD @ 12/01/2024 8:41:03 PM (Electronically Signed) Labs on day of discharge: Labs from last 24 hours 12/04/24 06:12 WBC 8.06 RBC 4.18 L Hgb 12.3 L Hct 36.9 L MCV 88 MCH 29 MCHC 33 Plt Count 207 Sodium 140 Potassium 4.3 Chloride 107 Carbon Dioxide 29 Anion Gap 4 L BUN 10 Creatinine 1.0 Estimated Creat Clear 84.71 Estimated GFR 87 Glucose 99 Calcium 9.0 Total Bilirubin 0.5 AST 22 ALT 19 Alkaline Phosphatase 56 C-Reactive Protein 14.6 H Total Protein 6.6 Albumin 3.7 Discharge Plan Discharge Disposition: Home, Self-Care Date of Admission: 12/01/24 22:15 Attending Provider on Discharge: Orin New Consulting Providers: Nessa Dalton Primary Care Provider: Christiano Montes Condition: Improved Anticipated Discharge Date/Time: 12/04/24 10:09 Discharge Medications: Continued alprazolam [Xanax] 0.25 mg tablet 0.25 mg PO BID PRN (Reason: anxiety) Qty: 30 1RF hydroxyzine HCl 25 mg tablet 25 mg PO TID PRNQty: 14 0RF atomoxetine 60 mg capsule 60 mg PO QAM lamotrigine 200 mg tablet 400 mg PO DAILY trazodone 50 mg tablet 50 mg PO HS sertraline 100 mg tablet 200 mg PO DAILY Discharge Orders: Discharge Order (Routine); Ordered 12/04/24 Ordered By: Orin New Patient Education: Ertapenem (By injection), Appendicitis (GEN) Additional Instructions: You will continue IV antibiotic therapy: on Saturday and Saturday, return to the hospital floor for your infusions. On Saturday, you will report to the [facility] for infusions during the week. A follow up appointment with Dr. Dalton, General Surgery, will be made for you on Saturday12/08/24 Activity Level: Activity as Tolerated Discharge Diet: Regular and Other Diet Detail: Continue to advance diet as tolerated Follow Up Appointments: Christiano Montes MD [Primary Care Provider] - Nessa Dalton MD [Staff Physician] - 12/08/24 10:45 am ([facility] for follow-up.) Forms: [employer] Info Instructions Discharge Comments: Ertapenem 1 g IV daily, likely for 4 more days, reassessing in Clinic 12/08/24
--- NOTE | 2024-12-04 10:25 | PM.GSPN ---
Subjective Subjective Date Seen: 12/04/24 Interval history: Nathan continues to improve denies nausea. He is tolerating a diet. He is moving his bowels. He states that his pain is minimal. He states that he has to push on his abdomen very hard in order to elicit pain. At rest he states that there is minimal pain as well. Exam Narrative: Exam Narrative: General: No acute distress Abdomen: Soft, minimally tender in the right lower quadrant. Const: Vital Signs, click to edit/add: Vital Signs - 24 hr 12/03/24 11:09 12/03/24 14:40 12/03/24 19:00 Temperature 98.7 F 98.3 F 99.2 F Pulse Rate [Left P ulse Oximeter] 67 71 67 Respiratory Rate 16 18 18 Blood Pressure [Ri ght Arm] 141/83 H 125/79 137/84 Pulse Oximetry 100 96 96 Oxygen Delivery Me thod Room Air Room Air Room Air 12/03/24 22:22 12/04/24 03:00 12/04/24 07:00 Temperature 99.1 F 97.9 F 98.3 F Pulse Rate [Left P ulse Oximeter] 71 83 70 Respiratory Rate 18 18 18 Blood Pressure [Ri ght Arm] 140/83 H 137/83 127/80 Pulse Oximetry 94 96 97 Oxygen Delivery Me thod Room Air Room Air Room Air Labs/Imaging Labs Labs: White blood cell count remains normal. CRP is down today to 14 from 21/12. Progress Note:A&P Assessment and plan (1) Complex appendicitis: Status: Acute (2) Adjustment disorder with mixed anxiety and depressed mood: Status: Chronic Plan The patient is a 59-year-old male with perforated appendicitis with large phlegmon. He has been improving on IV antibiotics. He is tolerating a diet and has return of bowel function with improvement of his pain significantly. I think he may discharge home today on IV antibiotics. -A midline was going to be placed this morning, however given his rapid improvement I anticipate only a few more days of IV antibiotics, therefore we will plan on placing an IV tomorrow med and attempting to use this until he sees me in clinic next week. -continue IV ertapenem for a total of 4 more days. I will see him following his dose on Saturday and reassess whether not additional antibiotics are necessary and will obtain labs at that time. The patient and his significant other know to call or return to be seen if there are any questions or concerns.
== END 2024-12-04 10:53 | disposition home or self-care (01) | DRG 248 ==
LOC: ED 19:15 → MEDSURG 21:38
PROVIDERS: Surgery; Admitting Provider Family Medicine; Emergency Provider Family Medicine; PCP Family Medicine; Visit Provider Family Medicine
DX: K35.33 Acute appendicitis with perforation, localized peritonitis, and gangrene, with abscess (principal); R73.03 Prediabetes; M51.369 Other intervertebral disc degeneration, lumbar region without mention of lumbar back pain or lower extremity pain; F51.04 Psychophysiologic insomnia; F43.23 Adjustment disorder with mixed anxiety and depressed mood; F10.11 Alcohol abuse, in remission; F98.8 Other specified behavioral and emotional disorders with onset usually occurring in childhood and adolescence; F11.21 Opioid dependence, in remission
CPT/HCPCS: 36415; 74177; 80048; 80053; 81001; 82962; 85025; 85027; 86140; 87086; 93005; 99285; A9270; J1335; J1650; J1885; J2405; J2543; J3480; Q9967

== ENCOUNTER 2024-12-09 10:30 | Outpatient (RCR) | payer BC, SELFPAY ==
[2024-12-05] MEDS: ERTAPENEM 1 GM in 0.9 % SODIUM CHLORIDE Mini-bag 100 ML IVPB (11:18)
--- NOTE | 2024-12-05 14:19 | PC.NURSE ---
Pt arrived to Med/Surg for outpatient infusion. IV placed in left wrist. Infusion complete without any complications. IV left in. Pt able to walk to exit. Will return tomorrow to same pt room, 278,
[2024-12-06 09:50] VITALS: BP 113/68; PULSE 76; RESP 18; TEMP 36.5; O2SAT 98
[2024-12-06] MEDS: ERTAPENEM 1 GM in 0.9 % SODIUM CHLORIDE Mini-bag 100 ML IVPB (09:59)
[2024-12-07 10:17] VITALS: BP 89/67; PULSE 80; RESP 16; TEMP 36.8; O2SAT 100
[2024-12-07] MEDS: ERTAPENEM 1 GM in 0.9 % SODIUM CHLORIDE Mini-bag 100 ML IVPB (10:33)
[2024-12-07] MEDS: SODIUM CHLORIDE 0.9 % (FLUSH) 10 ML SYRINGE 5 ML IVF (10:33)
[2024-12-08 10:41] LABS: Hematocrit 40.2 % (37.0-53.0); Hemoglobin* 13.3 gm/dL (13.5-17.5); Immature Granulocytes Abs Auto 0.04 K/uL (0.00-0.30); Immature Granulocytes Pct Auto 0.4 %; Mean Corpuscular HGB Conc 33 gm/dL (32-36); Mean Corpuscular Hemoglobin 29 pg (26-34); Mean Corpuscular Volume 89 fL (80-100); RDW Coefficient of Variation % 12.2 % (11.5-15.5); Red Blood Count 4.54 m/uL (4.30-5.90); White Blood Count* 10.13 K/uL (4.50-11.00)
[2024-12-08] MEDS: SODIUM CHLORIDE 0.9 % (FLUSH) 10 ML SYRINGE 5 ML IVF ×2 (10:44→11:17)
[2024-12-08] MEDS: ERTAPENEM 1 GM in 0.9 % SODIUM CHLORIDE Mini-bag 100 ML IVPB (10:45)
[2024-12-08 10:49] LABS: Lymphocytes Absolute Auto 1.20 K/uL (0.90-2.90); Slide Review Reflex No
--- NOTE | 2024-12-09 13:44 | ONC.NURNOTE ---
Patient called and left message stating he was switched to PO medications after his appointment yesterday and therefore will not be needing IV antibiotics anymore.
== END 2025-06-03 23:59 | disposition home or self-care (01) ==
LOC: CCIC 10:30
PROVIDERS: Surgery; PCP Family Medicine; Referring Provider Family Medicine; Visit Provider Clinical Nurse Specialist
DX: K35.32 Acute appendicitis with perforation, localized peritonitis, and gangrene, without abscess (principal)
CPT/HCPCS: 36415; 85025; 86140; 96365; G0463; J1335

== ENCOUNTER 2025-01-05 08:27 | Outpatient (CLI) | payer BC, SELFPAY ==
--- NOTE | 2025-01-05 09:00 | CRLHL7_ITS ---
For Patients: As a result of the Century Cures Act, medical imaging exams and procedure reports are released immediately into your electronic medical record. You may view this report before your referring provider. If you have questions, please contact your health care provider. INDICATION: Follow-up acute appendicitis with perforation. TECHNIQUE: CT abdomen and pelvis acquired with 100 cc Omnipaque 370 IV contrast. COMPARISON: CT abdomen and pelvis December 01, 2024 FINDINGS: Lower chest: Unremarkable. Liver: Normal in size and attenuation. No suspicious masses. Gallbladder and bile ducts: No stones or inflammation. No biliary dilatation. Pancreas: No mass or inflammation. Spleen: Normal in size. No masses. Adrenal glands: No suspicious mass. Kidneys: Bilateral kidneys are normal in size with symmetric enhancement. No nephrolithiasis or hydronephrosis. Stable large exophytic cyst of the left kidney. GI tract: Redemonstration of findings related to complicated acute appendicitis with possible perforation. There is significant decrease in nas-appendicular inflammatory fat stranding. No drainable or localized fluid collection/abscess in the right lower quadrant. No free air is identified. No evidence of bowel obstruction. Vasculature: Abdominal aorta is normal in caliber. Lymph nodes: No lymphadenopathy. Peritoneum/Abdominal Wall: No free air or significant free fluid. Pelvis: Unremarkable. Bones: Multilevel moderate degenerative changes of the spine. No suspicious bony lesion. IMPRESSION: Follow-up for acute complicated/possible perforated appendicitis. Significant interval reduction in the nas appendicular inflammatory changes. No localized or drainable fluid collection or free intraperitoneal air. Please note that all CT scans at this facility use dose modulation, iterative reconstruction, and/or weight-based dosing when appropriate to reduce radiation dose to as low as reasonably achievable. Dictated by Addison Lundberg MD @ 01/05/2025 9:36:18 AM (Electronically Signed)
== END 2025-01-05 08:28 | disposition home or self-care (01) ==
LOC: CT 08:28
PROVIDERS: PCP Family Medicine; Visit Provider Surgery
DX: K35.32 Acute appendicitis with perforation, localized peritonitis, and gangrene, without abscess (principal)
CPT/HCPCS: 74177; Q9967

== ENCOUNTER 2025-01-26 07:07 | Outpatient (CLI) | payer BC, SELFPAY ==
--- NOTE | 2025-01-26 08:31 | W.ANESCHARGE ---
Anesthesia Charges Start Date/Time Anesthesia Start Date: 01/26/25 Anesthesia Start Time: 07:53 Stop Date/Time Anesthesia Stop Date: 01/26/25 Anesthesia Stop Time: 08:30 Coding CPT Codes CPT Codes: MARIOLA LWR INTST NDSC NOS - 03633 ([id number]) P2 - PATIENT W/MILD SYST DISEASE, QK - PERSONAL LINES SALES EXECUTIVE 2-4 CNCRNT ANES PROC, QX - RETURNS CLERK SVC W/ MD MED DIRECTION
--- NOTE | 2025-01-26 08:50 | W.ANESCHARGE ---
Anesthesia Charges Start Date/Time Anesthesia Start Date: 01/26/25 Anesthesia Start Time: 07:53 Stop Date/Time Anesthesia Stop Date: 01/26/25 Anesthesia Stop Time: 08:30 Coding CPT Codes CPT Codes: MARIOLA LWR INTST NDSC NOS - 61848 ([id number]) QK - ORE CHARGER 2-4 CNCRNT MARIOLA PROC, QX - HOSPICE ENTRANCE ATTENDANT SVC W/ MD MED DIRECTION, P2 - PATIENT W/MILD SYST DISEASE
== END 2025-01-26 07:08 | disposition home or self-care (01) ==
LOC: OP CLINIC 07:08
PROVIDERS: PCP Family Medicine; Visit Provider Surgery
DX: Z12.11 Encounter for screening for malignant neoplasm of colon (principal); D12.1 Benign neoplasm of appendix; D12.2 Benign neoplasm of ascending colon; D12.5 Benign neoplasm of sigmoid colon
CPT/HCPCS: 00811; 45385; 88302; 88305; J2704

== ENCOUNTER 2025-02-08 09:15 | Day surgery (SDC) | payer BC, SELFPAY ==
[2025-02-08] VITALS (16 sets, daily range): BP systolic 90–131; BP diastolic 41–74; PULSE 43–61; RESP 16; TEMP 36.3–37.3; O2SAT 92–97; BMI 27.1
[2025-02-08] MEDS: SODIUM CHLORIDE 0.9 % (FLUSH) 10 ML SYRINGE IVF (10:10)
[2025-02-08] MEDS: LACTATED RINGERS 1000 ML 1,000 ML 100 ML IV (10:10)
--- NOTE | 2025-02-08 10:45 | W.PM.H&PU ---
History & Physical Update History & Physical Update H&P Reviewed and patient assessed: The following changes are noted below H&P Updates: The patient is a 6-year-old male who developed perforated appendicitis on 12/01/2024. He was initially managed with a non operative approach given the degree of intra-abdominal inflammation. He completed a course of antibiotics and underwent a repeat CT scan which showed marked improvement. He then underwent a colonoscopy a few weeks ago which showed 3 small polyps. He presents today for interval appendectomy. He has no ongoing symptoms.
--- NOTE | 2025-02-08 10:47 | PM.GSPRC ---
Operative Note Date of procedure: 02/08/25 Pre-op diagnosis: Prior history of perforated appendicitis Post-op diagnosis: same Type of Procedure: Laparoscopic appendectomy (interval) Indications: The patient is a 6-year-old male who developed perforated appendicitis on 12/01/2024. He was initially managed with a non operative approach given the degree of intra-abdominal inflammation. He completed a course of antibiotics and underwent a repeat CT scan which showed marked improvement. He then underwent a colonoscopy a few weeks ago which showed 3 small polyps. He presents today for interval appendectomy. He has no ongoing symptoms. Procedure Description: After discussing the risks and benefits of the procedure, the patient signed informed consent.? The operative site was marked and the patient was brought to the operating room and placed on the operating table in supine position.? Care was taken to pad the patient's pressure points.?? The patient was then intubated by anesthesia.?? The operative site was then prepped and draped in the usual sterile fashion.? A time-out was then performed. Entrance to the abdomen was obtained via a 5 mm optical trocar in the left upper quadrant. The abdomen was insufflated and briefly surveyed for any signs of injury. There were none. A 12 mm port was placed inferior to the umbilicus as well as a 5 mm port in the left lower quadrant. Both were done under direct vision. The patient was then placed in Trendelenburg position with the right side up. The patient's right colon and cecum were adherent to the anterior and lateral abdominal wall between filmy and dense adhesions. I examined the cecum, however the appendiceal base was not obviously seen. I began by taking down the adhesions with a Metzenbaum scissors. Care was taken to avoid injuring the colonic serosa. On the inferolateral aspect of the cecum, there was a densely adherent area to the pelvic sidewall. Using a combination of dissection with a scissor and blunt dissection, I was able to carefully dissect this tissue away from the pelvic sidewall and was able to see the base of the appendix. The appendix was folded back onto the cecum posterior laterally. The tip was visualized and the midportion was scarred in, consistent with the patient's history of perforation and obliteration of a portion of the appendiceal wall. I began by dissecting a mesenteric window between the base of the appendix and the mesoappendix. An Endo-BRITTANIE purple load stapler was then used to transect the appendix at its base. The staple line was examined for bleeding. There was none. I then divided a portion of the mesoappendix using LigaSure. At this point, the appendix was densely adherent to the cecum and I carefully began to dissect this away. Using a combination of gentle blunt dissection, I was able to free up the appendix in order to dissect the adhesions from the cecum using Metzenbaum scissors. I encountered a small cavity with chronic inflammatory tissue. There was no purulence here. This was at the site of prior perforation. The appendix was freed from the cecum and then removed from the abdomen using an Endo-Catch bag. This was sent to pathology. I turned my attention back to the small area of inflammatory rind which measured approximately 1 cm. Again there was no purulence noted. I removed the small amount of chronic fibrinous tissue using a grasper. There did not appear to be any injury to the cecum in this area nor in any other area where adhesions had been taken down. Once this was done, hemostasis appearing excellent, cecum was then positioned back in its appropriate location, with the small inflammatory rind being tucked posteriorly. The 12 mm port site fascia was closed with 0 Vicryl using a José Miguel-Isidra device. The ports were then removed and the abdomen was desufflated. The skin was then closed with absorbable subcuticular suture. Sterile dressings were then applied. Instrument sponge and needle counts were correct at the end of the case. The patient was then woken and transported to the PACU in stable condition. ? The patient tolerated the procedure well. Findings: Retrocecal appendix with healthy base and inflammatory rind at location of prior perforation. Anesthesia: GETA Surgeon: Nessa Dalton MD Estimated blood loss (mL): 5 Specimen: Appendix Condition: stable Disposition: PACU
[2025-02-08] MEDS: PIPERACILLIN/TAZOBACTAM 3.375 GM INJ IVPB (11:09)
[2025-02-08] MEDS: BUPIVACAINE 0.25% 30 ML INJECTION (11:11)
--- NOTE | 2025-02-08 11:11 | W.PM.NB ---
Nerve Block Nerve Block Time Seen by Provider: 10:58 Date Seen: 02/08/25 Type of block requested by surgeon for post-operative analgesia: TAP Side: bilateral Time out performed: Yes Verification of patient name: Yes Verification of date of : Yes Site marking: site marked Name of person performing procedure: Kevon Continuous monitoring Was continuous monitoring of O2 sat, B/P, night monitor, recorded every 15 minutes?: Yes Procedure Checklist: sterile prep, needles and gloves Ultrasound guided. Images saved: Yes Medications given in 5ml increments after negative aspiration: Marcaine %: 0.25 mL: 30 Needle gauge: 20 and Exparel mL: 10 Patient tolerated procedure well: Yes Additional comments: Needle noted between internal oblique and transversus abdominus. Local spread visualized Block Charges Block Charge (with Pro Fee): TAP Bilateral Use of Ultrasound Machine for Block: Yes- US Guidance/pain block
--- NOTE | 2025-02-08 11:11 | W.ANESCHARGE ---
Anesthesia Charges Start Date/Time Anesthesia Start Date: 02/08/25 Anesthesia Start Time: 10:48 Stop Date/Time Anesthesia Stop Date: 02/08/25 Anesthesia Stop Time: 12:28 Coding CPT Codes CPT Codes: ANESTH SURG LOWER ABDOMEN - 05644 ([id number]) P3 - PATIENT W/SEVERE SYS DISEASE, QK - TRANSPLANTER ORCHID 2-4 CNCRNT ANES PROC, QX - CLAIM REPRESENTATIVE SVC W/ MD MED DIRECTION
--- NOTE | 2025-02-08 12:36 | W.ANESCHARGE ---
Anesthesia Charges Start Date/Time Anesthesia Start Date: 02/08/25 Anesthesia Start Time: 10:48 Stop Date/Time Anesthesia Stop Date: 02/08/25 Anesthesia Stop Time: 12:28 Coding CPT Codes CPT Codes: ANESTH SURG LOWER ABDOMEN - 90191 ([id number]) P3 - PATIENT W/SEVERE SYS DISEASE, QK - COKE PRODUCTION HEATER 2-4 CNCRNT ANES PROC, QX - GREENS CUTTER SVC W/ MD MED DIRECTION
[2025-02-08] MEDS: 0.9 % SODIUM CHLORIDE 500 ML 500 ML 100 ML IV (13:43)
== END 2025-02-08 15:02 | disposition home or self-care (01) ==
PROVIDERS: PCP Family Medicine; Visit Provider Surgery
PROC: 0DTJ4ZZ Resection of Appendix, Percutaneous Endoscopic Approach (ICD-10-PCS; CPT 44970; principal; 2025-02-08 11:00)
DX: K35.33 Acute appendicitis with perforation, localized peritonitis, and gangrene, with abscess (principal); G89.18 Other acute postprocedural pain; Z87.19 Personal history of other diseases of the digestive system
CPT/HCPCS: 44970; 00840; 64488; 76942; 88304; J0665; J0666; J1100; J1630; J1885; J2405; J2543; J2704; J3475; J3490; J7030; J7120